=== PATIENT | female | born 1945 | race Caucasian/White ===

== ENCOUNTER 2016-08-07 08:11 | Inpatient (IN) | payer MEDICARE ==
[~2016-08-07] VITALS: Ht 152.4 cm; Wt 76.3 kg
--- NOTE | ~2016-08-07 | HP ---
PATIENT'S NAME: MADDIE DENSON [facility] AGE: 71 Y [address] ROOM: [place] [address] LOCATION: [facility], [place] ADMIT DATE: 08/07/2016 History & Physical DISCHARGE DATE: FAMILY PHYSICIAN: PHYSICIAN, UNKNOWN ATTENDING PHYSICIAN: RAPHAEL STATON DATE OF SERVICE: CHIEF COMPLAINT: Altered mental status change. HISTORY OF PRESENT ILLNESS: This is a 71-year-old female with history of diabetes as well as DKA with coma in the past. Last admission here was June last year, during which time, she presented with a same clinical scenario as what she is presenting with right now. Please check the discharge summary which was done then by Dr. Keys. Unable to obtain history from the patient as she is currently confused and the ER doctor as well was unable to obtain much history, but from what Dr. Ramon, the ER doc said, it seemed a neighbor went in to check on the patient and found the patient confused and also altered and so the unit was called and patient was brought into the ER. During evaluation in the ER, the patient was lethargic, confused, and blood sugar was 1500 and she was started on DKA protocol. During my evaluation, her mentation had improved some. On the initial arrival to the ER, she was only able to say her name, but during my evaluation, she was able to tell me her full name and where she was at, and at that point, she denied any pain. She denies chest pain. Denies nausea, vomiting, though the reliability cannot be depended on. She denied any abdominal pain. REVIEW OF SYSTEMS: The 13 elements of review of systems were asked and as documented in the HPI. PAST MEDICAL HISTORY: Unable to obtain from the patient. However per old records, indicates poorly controlled diabetes, probably hypertension. PAST SURGICAL HISTORY: Unable to obtain from the patient secondary to her altered mental status. SOCIAL HISTORY: As well unable to obtain due to patient's condition. FAMILY HISTORY: Unable to obtain secondary to patient's condition. PATIENT'S NAME: MADDIE DENSON [facility] AGE: 71 Y [address] ROOM: [place] [address] LOCATION: [facility], [place] ADMIT DATE: 08/07/2016 History & Physical DISCHARGE DATE: FAMILY PHYSICIAN: PHYSICIAN, UNKNOWN ATTENDING PHYSICIAN: RAPHAEL STATON PHYSICAL EXAMINATION: VITAL SIGNS: In the ER on the initial arrival. Temperature was 94.2, however, thereafter temperature dropped to around 93; pulse 110; respiratory rate 36; oxygen saturation 100% on 6 L of nasal cannula. GENERAL: Reveals a female who is alert, awake, oriented x1, not in any form of respiratory distress or painful distress, intermittent confusion, incoherent with her words. NEUROLOGIC: Unable to thoroughly evaluate secondary to patient's confusion and unable to follow commands adequately. HEENT: Normocephalic, atraumatic. Pupils equal and reactive to light bilaterally. Pharynx, the patient is edentulous, very dry mucosa. NECK: Supple. No area of tenderness. No lymphadenopathy. EAR: No obvious ear discharge or drainage. CARDIOVASCULAR: Normal S1, S2. Tachycardia. CHEST: Clear to auscultation bilaterally. ABDOMEN: Soft, nondistended. No area of tenderness. No lymphadenopathy. ABDOMEN: Soft, nondistended. No palpable organomegaly. Positive bowel sounds. EXTREMITIES: There is no joint swelling or erythema or tenderness. SKIN: No rash or skin breakdown. LABORATORY DATA: On admission, ABG on admission pH 6.80, pCO2 is 11, lactic acid is 6.3. Troponin on admission, first set was 0.192 and it went up to 0.373. WBC on admission was 27.9, H and H were 13.2/43.5, platelet is 345. Sodium on admission corrected was 146 with blood sugar of 1005. Repeat BMP which occurs about 2 hours after the initial sodium, corrected sodium was 149, creatinine remained at 1.8, and glucose was 868, potassium was 5.6, bicarb was less than 5. Liver function tests were within normal limits. Anion gap was recordable. UA leukocytes negative, nitrite negative, bacteria negative. CRP 1.92. Acetone was positive. Procalcitonin 0.4. CK-MB 2.4. Microbiology: Blood cultures are pending. RADIOLOGY: Chest x-ray no acute findings. CT head, normal CT of the head, no change. ASSESSMENT AND PLAN: This is a 71-year-old female who comes in with altered mental status change. 1. Acute encephalopathy probably secondary to diabetic ketoacidosis with coma which is slowly improving. We will continue to manage the patient's DKA according to the order set. We will continue to monitor the patient's mental status change. Please note #1 present on admission. 2. Diabetic ketoacidosis with coma, slowly improving. We will continue the patient on the insulin order set. 3. Hypernatremia. Probably secondary to the dehydration from insensible PATIENT'S NAME: MADDIE DENSON [facility] AGE: 71 Y [address] ROOM: [address] [address] LOCATION: [facility] [place] ADMIT DATE: 08/07/2016 History & Physical DISCHARGE DATE: FAMILY PHYSICIAN: PHYSICIAN, UNKNOWN ATTENDING PHYSICIAN: RAPHAEL STATON water loss. Right now, the patient has received 3.5 L of half normal saline bolus, and thereafter, we will continue her on D5 water at 75 mL an hour. We will continue and titrate the insulin drip accordingly. 4. Hyperkalemia secondary to acute kidney injury. It is improving. Hopefully, as the patient is still on the insulin drip that she is still going to continue to improve. 5. Acute kidney injury probably prerenal from dehydration from the diabetic ketoacidosis. We will continue to hydrate the patient aggressively, present on admission. We will also get a renal ultrasound. 6. Acute hypoxic respiratory failure. The patient right now is on 4 L of nasal cannula, probably from respiratory muscle fatigue from Kussmaul respiration. We will continue to manage the metabolic derangements and hope this will improve the respiratory failure. 7. High anion gap metabolic acidosis present on admission secondary to diabetic ketoacidosis. The patient is currently on bicarb drip. We will continue to check her ABG every 4 hours as well as her BMP and once her pH is greater than 7.0, then we will stop the bicarb drip. Continue to hydrate the patient aggressively. 8. Systemic inflammatory response syndrome present on admission. Urine culture is negative. UA is negative. Chest x-ray, there is no infiltrate. This maybe reactive secondary to the diabetic ketoacidosis and severe dehydration; however, we will empirically start the patient on Zosyn and follow up on the results of the urine culture. 9. Elevated troponin probably secondary to the acute kidney injury versus demand ischemia. We will start the patient empirically on heparin drip. The EKG is not normal sinus rhythm without any ST-T segment changes. Cardiology has been consulted by Dr. Ramon. They tried doing the echocardiogram in the ER, but the patient was restless and not cooperative, so echo has been postponed until tomorrow. Critical care time spent on this patient is approximately 65 minutes. MD PRANAY CORNELIUS/josiah /[id number] D: 311 T: HISTORY & PHYSICAL
--- NOTE | ~2016-08-07 | HP ---
PATIENT'S NAME: MADDIE DENSON [facility] AGE: 71 Y [address] ROOM: [place] [address] LOCATION: [facility] ADMIT DATE: 08/07/2016 History & Physical DISCHARGE DATE: FAMILY PHYSICIAN: PHYSICIAN, UNKNOWN ATTENDING PHYSICIAN: RAPHAEL STATON DATE OF SERVICE: ADDENDUM: Please note under physical examination, SKIN: The skin of the bilateral lower extremities was mottled and also the patient had a cold skin. MD PRANAY CORNELIUS/josiah /[id number] D: T: 650 HISTORY & PHYSICAL
--- NOTE | ~2016-08-07 | CATH ---
Cardiac Diagnostic Report Demographics Patient Name JANIYA Vizcarra Gender Female Date of 1945 Age 71 year(s) Patient Number [id number] Date of Study 08/11/2016 Visit Number [id number] Room Number G6[address] [place] [id number] Ht 152.4 cm Wt 73.48 kg Referring Leslieelvia Nhi Vizcarra Primary Physician Physician Performing Liliana Secondary Physician Physician Hattie ARENAS Diagnostic Liliana Assisting Physician Physician Hattie ARENAS Interventional Physician Sheet Tester Physician Findings and Conclusions Diagnostic Findings and Conclusion 1. Normal LVEDP of 11 mm Hg. 2. Mild CAD with ostial LAD 40% smooth lesion. Diagnostic Recommendations Medical treatment for now. Procedure Description The patient was brought to the diagnostic cardiac catheterization-EP laboratory in the fasting, non-sedated state. Informed consent was obtained in the written and verbal form after the risks and benefits were explained. The patient had no further questions and agreed to proceed. The planned puncture-incision site(s) were shaved and prepped with ChloraPrep and draped in the usual sterile manner. Conscious sedation, supplemental oxygen, and pain control medications were delivered by a registered nurse under physician guidance. Surface ECG rhythm, blood pressure measurement, and pulse oximetry were monitored throughout the procedure. Arterial access. The access site was infiltrated with lidocaine. The vessel was entered with the Seldinger technique. A sheath was advanced into the vessel and used for catheter placement. Selective left coronary angiography. A catheter was advanced into the left coronary vessel ostium under Fluoroscopic guidance. Contrast was injected by hand. Images were obtained in multiple projections. Selective right coronary angiography. A catheter was advanced into the right coronary vessel ostium under fluoroscopic guidance. Contrast was injected by hand. Images were obtained in multiple projections. Left heart catheterization. A catheter was advanced across the aortic valve to the left ventricle under fluoroscopic guidance. Resting hemodynamics were obtained. Arterial artery hemostasis was achieved. The patient was transferred to a regular nursing floor via cart accompanied by a nurse. The patient left the laboratory in stable condition. Diagnostic Cath Status: Urgent Procedure Procedure Type Diagnostic procedure:Angiography:, Coronary Angios w/[facility] Indications: Abnormal Stress Test and Elevated Troponin. The procedure was explained in detail to the patient. Risks, complications and alternative treatments were reviewed. Written consent was obtained. Medications Reviewed with Patient prior to Procedure. Angiographic Findings Dominance: Left Cardiac Arteries and Lesion Findings LMCA: Minor Luminal Irregularities. LAD: type II. Small diagonals. Lesion on Prox LAD: Ostial.40% stenosis . LCx: Minor Luminal Irregularities.5 OMs. OM1 and OM3 are medium sized. RCA: Normal (0% Stenosis). Ramus: Minor Luminal Irregularities. Coronary Tree Procedure Data Procedure Date Date: 08/11/2016Start: 10:36 AMEnd: 11:01 AM Entry Locations - Retrograde Percutaneous access was performed through the Right Femoral artery (Primary location). A 7 Fr sheath was inserted. Hemostasis was successfully obtained using Perclose ProGlide (Guzman). Closure Comments: Deployed by RT. Rodrigo. Procedure Medications Order and Administration + + +--------+ + !Time !Medication !Dosage !Route ! + + +--------+ + !08/11/2016 10:31 AM !Versed !1 mg !I.V. ! + + +--------+ + 08/11/2016 10:34 AM !Oxygen !2 l/min !NC ! + + +--------+ + !08/11/2016 10:35 AM !Fentanyl !50 mcg !I.V. ! + + +--------+ + !08/11/2016 10:52 AM !Heparin (ACC_3) ! !I.V. drip ! + + +--------+ + Devices Used - A6 Fr. BS JR 4 Diag. Catheterwas used for:Right coronary angiography. - A6 Fr. BS JL 4 Diag. Catheterwas used for:Left coronary angiography.Unable to cannulate the vessel. - A6 Fr. BS JL 3.5 Diag. Catheterwas used for:Left coronary angiography. Contrast Material - Isovue 77396 ml Fluoroscopy Time: Diagnostic: 4:24 minutes. Total: 4:24 minutes. Fluoroscopy Dose: Diagnostic: 1063 mGy. Total: 1063 mGy. Estimated Blood Loss: 20 ml. Medical History Performed Procedures and Imaging Results - Stress testing with SPECT MPIwas performed. Results were: Positive. Risk/Extent of ischemia was: Intermediate risk. Allergies - No known allergies. Risk Factors The patient risk factors include:hypercholesterolemia, hypertension, insulin-treated diabetes mellitus, last creatinine: 0.8 mg/dl, creatinine clearance: 76.99 ml/min and dyslipidemia. Admission Data Admission Date: 08/07/2016 Admission Time: 10:44 AM Admit Source: Other Insurance Payors: Medicare. Admission Medications + +------+------+ + + + + !Medication !Dosage!Times !Last !Last !Administered !Comments ! ! ! !Per !Delivery !Delivery ! ! ! ! ! !Day !Date !Time ! ! ! + +------+------+ + + + + !Beta ! ! ! ! !Yes ! ! !Jason ! ! ! ! ! ! ! !(any) ! ! ! ! ! ! ! + +------+------+ + + + + !Aspirin ! ! ! ! !Yes ! ! !(any) ! ! ! ! ! ! ! + +------+------+ + + + + !Statin ! ! ! ! !Yes ! ! !(any) ! ! ! ! ! ! ! + +------+------+ + + + + Clinical Evaluation Leading to Procedure - The patient's CAD presentation was assessed as: Non-STEMI. - The patient's anginal syndrome during the past two weeks was assessed as: Class IV according to the [place] Cardiovascular Society Classification System (CCS). Anti-anginal medications were prescribed during the past two weeks. The medication is: Beta Blockers. Hemodynamics Condition: Rest O2 Consumption: Estimated: 143.51Heart Rate: 48 bpm Pressures (mmHg) +-----+ + !Site !Pressure ! +-----+ + !LV !131/2 ,11 ! +-----+ + !LV !128/1 ,10 ! +-----+ + !AO !122/59 (87) ! +-----+ + Shunts Oxygen Values O2 Capacity 159.12 O2 Consumption 143.51 Signatures dtt: Hattie Ford dtd: 08/11/16 1036 Physician Self Edit
--- NOTE | ~2016-08-07 | DS ---
PATIENT'S NAME: MADDIE DENSON [facility] AGE: 71 Y [address] ROOM: [address] [address] LOCATION: [facility] ADMIT DATE: 08/07/2016 Discharge Summary DISCHARGE DATE: 08/12/2016 FAMILY PHYSICIAN: Darius Benjamin MD ATTENDING PHYSICIAN: Nhi Waldrop PRIMARY DIAGNOSES: 1. Diabetic ketoacidosis with coma. 2. Acute encephalopathy. 3. Acute temporal cerebrovascular accident. 4. Acute kidney injury. 5. Acute hypoxic respiratory failure. 6. Utz-VM-xqctxkx elevation myocardial infarction. 7. Sepsis. 8. Acute hyponatremia. PRINCIPAL PROCEDURE: Done for the patient includes a cardiac cath by Dr. Ford. LABORATORY DATA: On admission, troponin 1st set on admission was 0.192, highest level of troponin obtained was 4.5. WBC on admission was 27.9, prior to discharge was 5.4; H and H on admission was 13.2/43.5, prior to discharge was 11.6/34.4; platelet on admission was 345, prior to discharge was 164. Sodium on admission is 132, corrected, sodium prior to discharge was 141; potassium on admission was 6.2, prior to discharge was 3.7; bicarb on admission was less than 5 and prior to discharge was 25; creatinine on admission was 1.8, prior to discharge was 0.7. ABG on admission was pH less than 6.80, pCO2 11, and PO2 152. Magnesium on admission was 1.5, was repleted, prior to discharge was 1.6. Stool for C. difficile was negative. Blood culture, no growth after 5 days. Urine culture, 1000 [place] [address] colony-forming unit Klebsiella pneumoniae. Blood culture, no growth after 5 days x2 sets. RADIOLOGY: Chest x-ray, no acute findings. Ultrasound of the kidneys: Moderate chronic cortical thinning on both sides consistent with chronic renal disease. No hydronephrosis on either side to suggest obstructive uropathy. CT of the head: Normal CT of the head, no change. CT of the abdomen and pelvis is reported as small bilateral pleural effusion with very small pericardial effusion and cardiomegaly, no acute finding in the abdomen. Repeat CT of the head, stable. No acute intracranial changes. MRI of the brain: Small acute ischemic infarct in the left temporal lobe. A stress test positive in the inferolateral, and cardiac cath, normal LVEDP of 11 mm, mild CAD with ostial LAD 40% smooth lesion. Medical treatment for now. PATIENT'S NAME: MADDIE DENSON [facility] AGE: 71 Y [address] ROOM: [place] [address] LOCATION: [facility] ADMIT DATE: 08/07/2016 Discharge Summary DISCHARGE DATE: 08/12/2016 FAMILY PHYSICIAN: Darius Benjamin MD ATTENDING PHYSICIAN: Nhi Waldrop [facility] COURSE: For history of present illness, please take a look at the H and P which was done by Dr. Waldrop. The patient was admitted to ICU where she was at for about 4 days. She came in and was managed for DKA with coma as well as a yqi-PE-zpnvsxa elevation NE, so had a Cardiology consult from the first day of the hospital stay. Given her acute encephalopathy as well, she had a CT of the head, which was essentially was done, negative. She was managed as per the DKA order pathway. She did have very severe high anion gap metabolic acidosis, which did not start to correct appropriately until the next day of the hospital stay. Slowly her kidney function began to improve and her acid base abnormality as well started to improve as well as her blood sugar control. However, the acute encephalopathy still persisted with confusion, some restlessness, and disorientation. Because of the persistence despite the fact that the blood sugar was better controlled, we had a repeat CT head done, which essentially was unchanged; however, we decided to go ahead and do an MRI of the brain, given the fact that her encephalopathy still continued despite the fact that her acute medical issues which she presented with had significantly improved. So, the MRI of the head did show a small left temporal acute CVA. Also by after the 4th day of the hospital stay, she was successfully transferred out of the ICU to PCU; and upon getting to PCU, there was a significant change in her mental status characterized by the patient being alert, awake at this time around now, oriented x3. The time interval for this change was pretty remarkable. However, from the first day of the hospital stay given her uph-AC-aeojjaw elevation NE, she was on heparin as well as aspirin and was empirically on antibiotics secondary to her elevated white cell count. However, her urine culture was positive for the Kle[place] [address] colony-forming units which was not significant for a UTI; however, she was continued on Zosyn for about 4 or 5 days, after which it was switched to oral Levaquin. Upon getting to PCU, the patient did have a stress test done, which was positive in the inferolateral section; however, her EF was normal, so she did go ahead to get a cardiac cath done and the cardiac catheterization essentially showed not a significant coronary artery disease. Cardiology recommended medical management. A day after the catheterization, the patient is still remained clinically stable. Her mentation had returned to a baseline. She was alert, awake, and oriented x3. She was ambulating on the hallway and the patient was discharged home with home health. We did discuss with the patient that it is no longer safe for her to live on her own; however, she insisted that she needed to continue to live on her own and so we recommended for her to be discharged home with Home Health. Initially, she refused home health; however, the importance of this was explained to her as next time around she comes in with a severe DKA, it may be her last chance. DISCHARGE INSTRUCTIONS: To the patient include she needs to follow with her family doctor, Dr. Benjamin, in the next 1 week and also follow up with Dr. Ford in 2 weeks. PATIENT'S NAME: MADDIE DENSON [facility] AGE: 71 Y [address] ROOM: [place] [address] LOCATION: [facility] ADMIT DATE: 08/07/2016 Discharge Summary DISCHARGE DATE: 08/12/2016 FAMILY PHYSICIAN: Darius Benjamin MD ATTENDING PHYSICIAN: Nhi Waldrop MEDICATIONS ON DISCHARGE: 1. Aspirin 81 mg p.o. daily. 2. Lipitor 40 mg p.o. q.h.s. 3. Levemir 10 units subcu q.a.m. 4. Levemir 5 units subcu q.h.s. 5. Levaquin 750 mg p.o. daily 1 more day. 6. Synthroid 88 mcg p.o. daily. 7. Bystolic 5 mg p.o. daily. 8. Effexor 150 mg p.o. daily. 9. Metformin 1 g p.o. twice daily. 10. Dexilant 1 capsule p.o. daily. 11. Lasix 1 tab 40 mg p.o. every 48 hours. 12. Contour Next Strips and OneTouch UltraMini. MD PRANAY CORNELIUS/josiah /[id number] d: 08/13/16 0058 t: 08/14/16 1653, DISCHARGE SUMMARY
--- NOTE | ~2016-08-07 | ESTC ---
Cardiac Perfusion Imaging Demographics Patient Name JANIYA Vizcarra Gender Female Patient Number [id number] Race Visit Number [id number] Ethnicity [employer] ID Room Number G6302 Accession Number [id number] Height 60 inches Date of 1945 Weight 162 pounds Interpreting Liliana Kuhn Date of study 08/10/2016 Physician Supervising /ANCELMOP Liliana Kuhn NM Technologist Niki Lovelace MD Ordering Physician Liliana Kuhn Stress MD environmental engineering technician Stress ECG Reading Liliana Kuhn Nurse Alexus Goel Physician RN Medications Reviewed with Patient prior to Procedure. Procedure Procedure Type: Nuclear Stress Test:Pharmacological, Lexiscan, Cardiolite Stress Test Procedure Start time: 08/10/2016 09:10 Indications: Elevated cardiac enzymes. Risk Factors The patient risk factors include:hypercholesterolemia, hypertension, insulin treated diabetes mellitus, last creatinine: 0.8 mg/dl and dyslipidemia. Conclusions Summary No TID. Medium inferolateral ischemia of mild to moderate degree. LVEF:75%. Normal WM. Stress Protocols Resting ECG RSR. Pre-stress physical exam: Un changed. Peak HR:109 bpm HR/BP product:[id number] Peak BP:122/60 mmHg Predicted HR: 151 bpm % of predicted HR: 72 ECG Findings No ECG changes suggestive of ischemia. Arrhythmias No rhythm abnormality. Symptoms SOB. Nausea. Stress Interpretation Lexiscan cardiolite study with normal hemodynamic response. No chest pain. SOB and nausea. No EKG changes of ischemia. No arrythmias. Imaging Results Applied corrections - Motion correction applied High risk findings Summed scores - Summed stress score: 12 - Summed rest score: 7 - Summed difference score: 5 Stress ejection Ejection fraction:75 % EDV :88 ml ESV :22 ml Stroke volume :66 ml LV mass :124 gr LV size:Normal Normal LV function Imaging Protocols Rest Stress Isotope:Tc99m Sestamibi IV Isotope: Tc99m Sestamibi IV Isotope dose:11.4 mCi Isotope dose:35 mCi Date:08/10/2016 07:43 Date:08/10/2016 10:18 Technique: SPECT Technique: Gated Supine SPECT Supine Procedure Medications - Regadenoson (Lexiscan) 0.4 mg IV over 10-15 sec. I.V. 0.4 mg. Medical History Admission Data Admission date: 08/07/2016 Admission Time: 10:44 Hospital Status: Inpatient. Signatures dtt: Hattie Ford dtd: 08/10/16 0910 Physician Self Edit
--- NOTE | ~2016-08-07 | ER ---
PATIENT'S NAME: MADDIE DENSON [facility] AGE: 71 Y [address] ROOM: [place] [address] LOCATION: [facility] ADMIT DATE: 08/07/2016 ER/Outpatient Report DISCHARGE DATE: FAMILY PHYSICIAN: PHYSICIAN, UNKNOWN ATTENDING PHYSICIAN: RAPHAEL STATON CHIEF COMPLAINT: Altered mental status. HISTORY OF PRESENT ILLNESS: The patient arrives by EMS. Someone found her for unknown reasons. She appeared to be more altered and thus EMS was contacted. The patient is slurring her words and not interacting appropriately. She has a known history of diabetes. No significant collateral information is available. The patient denies any pain, but it is very difficult to understand her. She is breathing somewhat deeply. Collateral information suggests that she was also not acting quite right last night. PAST MEDICAL HISTORY: According to records includes hypothyroidism, high cholesterol, AFib, and renal disease. The patient has insulin-dependent diabetes and hypertension. PAST SURGICAL HISTORY: She has a history of cholecystectomy and hysterectomy. ALLERGIES: NO KNOWN MEDICAL ALLERGIES. MEDICATIONS: Please see med list. SOCIAL HISTORY: Could not be ascertained based on review of records and the patient interview. PHYSICAL EXAMINATION: VITAL SIGNS: Blood pressure is 128/88, pulse is 110, respiratory rate is 36, temp is 94.2, and SpO2 is 100% on 6 L nasal cannula. GENERAL: Frail female appearing older than her stated age, recumbent on the exam table, breathing heavily and confused. NEURO: The patient is awake, she is confused, she had some slurred speech. She is able to say her name and denies any pain. She does not follow commands in extremities. She does have a flexed posture of the hands. The patient has no seizure-like activity and no asymmetry on exam. HEENT: Normocephalic, atraumatic. The eyes are PERRL. The oropharynx is PATIENT'S NAME: MADDIE DENSON [facility] AGE: 71 Y [address] ROOM: [place] [address] LOCATION: [facility] ADMIT DATE: 08/07/2016 ER/Outpatient Report DISCHARGE DATE: FAMILY PHYSICIAN: PHYSICIAN, UNKNOWN ATTENDING PHYSICIAN: RAPHAEL STATON dry. No exudates or erythema. NECK: Supple. Trachea is midline. CHEST: Heart is tachycardic with no obvious murmurs. LUNGS: Grossly clear with tachypnea and hyperpnea. ABDOMEN: Benign. BACK: Normal to inspection and palpation. EXTREMITIES: Warm and well-perfused. No obvious significant edema or erythema. SKIN: Warm, dry, and intact with slowed capillary refill and cool hands. LABS AND X-RAYS: Chest x-ray, no obvious findings per my read. CT head reveals no significant findings other than atrophy per Radiology. Echo was ordered and results are pending. EKG appears to be sinus tachycardia with occasional PACs and some baseline artifact. No obvious ischemia. Repeat EKG does not have any ST- segment changes with an improved rate. Overall, baseline improved. Labs notable for the following: WBCs of 27.9, hemoglobin of 13.2, and platelets of 345. INR 0.94. CMS: Sodium is 132, potassium 6.2, chloride is 97, CO2 is below detectable threshold, glucose is 1005, BUN is 42, creatinine is 1.8, GFR is 28. LFTs are notable for an alk phos of 192, AST and ALT are both 18, CK- MB is 2.4. Troponin I initially 0.192, CRP of 1.92, free T4 of 1.0, TSH 0.913, procalcitonin 0.4, and serum ketones are positive at 1:16. Urinalysis no leukocytes, no nitrites, 25 blood, 1000 glucose, rare wbcs, rbcs, and epithelials. Blood gas; pH is below detectable threshold, pCO2 was 11, pO2 is 152 on 4 L. Lactate is 6.3. Repeat labs sodium of 137, potassium of 5.6, chloride of 102, CO2 below 5, glucose 868, creatinine remains at 1.8, and troponin up to 3.73. IMPRESSION: 1. Severe diabetic ketoacidosis. 2. Up trending troponin, likely demand ischema as the patient has no chest pain. 3. Concomitant lactic acidemia. 4. Azotemia. 5. Encephalopathy. EMERGENCY DEPARTMENT COURSE: The patient was seen and evaluated as above. Based on her presentation, severe metabolic derangement including significant thyroid disorder was considered. Her glucose per EMS was "high." This brought DKA to the forefront. DKA explains most of her presentation, but not the elevation of her troponin. Normal saline bolus was initiated. Laboratory was obtained, glucose corrects sodium to 146. She was started on half-normal saline and given the insulin bolus and drip. She had favorable response overall with up trending sodium. Troponin continued to up trend as well. Dr. Ford was PATIENT'S NAME: MADDIE DENSON [facility] AGE: 71 Y [address] ROOM: [place] [address] LOCATION: [facility] ADMIT DATE: 08/07/2016 ER/Outpatient Report DISCHARGE DATE: FAMILY PHYSICIAN: PHYSICIAN, UNKNOWN ATTENDING PHYSICIAN: RAPHAEL STATON consulted. The patient will require heparin however the patient was taken to the ICU before the heparin could be initiated. The patient's encephalopathy did improve somewhat while she was in the emergency department. The anion gap could not be calculated and I am sure that it is very high. She has improved in her mental status and encephalopathy somewhat. Interventions included normal saline bolus, bicarb bolus and drip, half-normal saline bolus, insulin bolus and drip, as well as initiation of heparin for her up trending troponin. The patient will be admitted to the Hospitalist Service for further evaluation and treatment of these issues. CRITICAL CARE NOTE: Fifty minutes of critical care was spent on this patient and is warranted for DKA, acute encephalopathy, and hemodynamic instability. Critical care time consisted of the patient assessment, ordering in laboratory and imaging, interpretation of chest x-ray and EKG. Direction of volume resuscitation and insulin management. Consult with Dr. Ford, rubber grinder, and Dr. Staton hospitalist. The patient reassessment, reevaluating her labs, and further volume management. The patient was taken to the Intensive Care Unit. She was given Zosyn empirically as she was cold, tachycardic, and had an elevated white count though there is no clear source of infection at this time. Procalcitonin is less indicative of sepsis as a cause for her current presentation. MD HARIS COSTELLO/josiah /[id number] d: 08/08/16 0011 t: 08/09/16 2235, OUTPATIENT REPORT
--- NOTE | ~2016-08-07 | CON ---
PATIENT'S NAME: MADDIE DENSON [facility] AGE: 71 Y [address] ROOM: [place] [address] LOCATION: [facility] ADMIT DATE: 08/07/2016 Consultation DISCHARGE DATE: FAMILY PHYSICIAN: PHYSICIAN, UNKNOWN ATTENDING PHYSICIAN: RAPHAEL STATON DATE OF CONSULTATION: 08/07/2016 HISTORY OF PRESENT ILLNESS: Mrs. Denson is a 71-year-old female patient who was hospitalized last June with DKA and presents again with DKA with altered mental status. She was found to have mildly elevated troponins and has variably increased CPK-MB, and I am consulted because of that. The patient is somnolent, lethargic, and is not responding to questions well at this time, so no history is from the patient. The patient has history of hypertension, diabetes, and elevated cholesterol. It is unclear whether she is a smoker or not. Her echocardiogram from last year revealed probable normal ejection fraction because of technically poor nature. Her chest x-ray does not reveal any congestive heart failure, and she is not in atrial fibrillation, but in regular rhythm. Her EKG does not reflect any abnormalities at this time. MEDICATIONS: Her current list of medications includes: 1. Metformin 1 g b.i.d. 2. Bystolic 5 mg a day. 3. Dexilant one capsule once a day. 4. Furosemide 40 mg a day. 5. Levothyroxine 88 mcg a day. 6. Simvastatin 40 mg a day at bedtime. 7. Effexor 150 mg 2 capsules a day. 8. Insulin. 9. Aspirin 81 mg a day. 10. Levemir 4 units subcu q.a.m. ALLERGIES: NO KNOWN DRUG ALLERGIES. PAST MEDICAL HISTORY: 1. History of gout. 2. Graves disease. 3. Cholecystectomy. PATIENT'S NAME: MADDIE DENSON [facility] AGE: 71 Y [address] ROOM: [place] [address] LOCATION: [facility] ADMIT DATE: 08/07/2016 Consultation DISCHARGE DATE: FAMILY PHYSICIAN: PHYSICIAN, UNKNOWN ATTENDING PHYSICIAN: RAPHAEL STATON 4. Hysterectomy. SOCIAL HISTORY: The patient lives at home. Her neighbor checked on her and found her to be in a confused state today. FAMILY HISTORY: Unknown. REVIEW OF SYSTEMS: Could not be done. PHYSICAL EXAMINATION: VITAL SIGNS: Her blood pressure with the Levophed is about 97/60, heart rate is in the 70s and regular, respirations are 18, afebrile. HEENT: Pallor. NECK: Supple. CARDIAC: First and second heart sounds are regular. There are no added sounds or murmurs. CHEST: Clear to auscultation. ABDOMEN: Obese and soft. EXTREMITIES: No edema. CENTRAL NERVOUS SYSTEM: Difficult to assess. ASSESSMENT: A 71-year-old female patient with history of type 2 diabetes, hypertension, and hyperlipidemia who presents with diabetic ketoacidosis, and her troponins are elevated. RECOMMENDATIONS: We will follow her troponins through and get an echo in the morning, and we will review what options are available in terms of doing a stress test. Again, I appreciate this opportunity to participate in the care of Mrs. Denson. MD AMA ESTRADA/josiah /[id number] d: 08/07/16 1815 t: 08/09/16 1453, CONSULTATION REPORT
--- NOTE | ~2016-08-07 | CON ---
PATIENT'S NAME: MADDIE DENSON [facility] AGE: 71 Y [address] ROOM: [place] [id number] LOCATION: [facility] ADMIT DATE: 08/07/2016 Consultation DISCHARGE DATE: FAMILY PHYSICIAN: PHYSICIAN, UNKNOWN ATTENDING PHYSICIAN: RAPHAEL STATON DATE OF CONSULTATION: 08/08/2016 REFERRING PHYSICIAN: MORTEZA AGRAWAL MD TIME: 05:40 p.m. CHIEF COMPLAINT: Altered mental status. HISTORY OF PRESENT ILLNESS: This is a 71-year-old female with a history of diabetes and DKA with coma. Last admission she presented in June. This admission, she presented in diabetic ketoacidosis with a pH of 6.80, her CO2 of 11, and bicarbonate of 152. Her lactate was 6.3. Her white count at that time was 27.9, and her glucose was over 1000. Since then, she has been brought down to a controlled glucose. We are being consulted because the patient is not clearing as she did with her last admission. She remains confused and lethargic and she is arousable, but does not offer any conversation. Her history had to be gleaned from the charts because the patient is unable to offer any history. When I ask her how she is doing and tried to review the systems, I do not feel she is a competent historian, however, she tells me she is not doing very good today. REVIEW OF SYSTEMS: The 13 elements of review of systems were unable to be obtained due to the patient's status. PAST MEDICAL HISTORY: Includes 1. Hypothyroidism. 2. Hyperlipidemia. 3. Atrial fibrillation. 4. Renal disease. 5. Insulin-dependent diabetes. 6. Hypertension. PAST SURGICAL HISTORY: Includes 1. Cholecystectomy. 2. Hysterectomy. PATIENT'S NAME: DENSONMADDIE HENSLEY [facility] AGE: 71 Y [address] ROOM: [place] [address] LOCATION: [facility] ADMIT DATE: 08/07/2016 Consultation DISCHARGE DATE: FAMILY PHYSICIAN: PHYSICIAN, UNKNOWN ATTENDING PHYSICIAN: RAPHAEL STATON ALLERGIES: INCLUDE NO KNOWN MEDICAL ALLERGIES. HOME MEDICATIONS: Include 1. Metformin 1000 mg p.o. b.i.d. 2. Bystolic 5 mg p.o. daily. 3. Dexilant one capsule p.o. daily. 4. Furosemide 40 mg one tablet p.o. q.48 hours. 5. Levothroid 88 mcg p.o. daily. 6. Simvastatin 40 mg p.o. at bedtime. 7. Effexor XR two capsules daily. 8. Levemir insulin 14 units at bedtime. 9. Aspirin 81 mg p.o. daily. 10. Levemir insulin 4 units subq q.a.m. PHYSICAL EXAMINATION: VITAL SIGNS: Revealed a weight of 74.9 kg, her temperature is 98.6, pulse is 98, respiratory rate is 23, oxygen saturations are 96% on room air, and her blood pressure is 110/62. GENERAL: This is a frail, elderly-appearing female, being helped back into bed with weakness. HEENT: Her head is normocephalic and atraumatic. Pupils are equal and reactive to light and accommodation. Her mouth is dry. NECK: Supple. Trachea is midline. No bruits were auscultated. CHEST: S1 and S2 with no murmurs, rubs, or gallops. LUNGS: Grossly clear with no adventitious sounds. ABDOMEN: Soft with hypoactive bowel sounds. SKIN: Warm and dry with capillary refill less than 3 seconds. NEUROLOGICAL: Her pupils are equal and reactive to light and accommodation. She is weak, maybe a 3/5 in upper and lower extremities bilaterally. There was no focal deficit noted, just generalized weakness. She is drowsy, but definitely arousable. She knows her name and where she is, but is disoriented to other findings. Deep tendon reflexes are 3+ in upper and lower extremities. Finger-nose and heel-crowell were performed adequately. Sensation was difficult to test due to the patient's ability to participate in the exam. She does move all extremities spontaneously and equally. Extraocular movements are slow. She does blink to bilateral threat. Visual chavarria are difficult to ascertain other than the blink because of her ability to participate in the exam. DIAGNOSTICS: The patient did have a CT of her head today, which showed stable images with no evidence of acute intracranial abnormality. She is on a heparin drip, and PATIENT'S NAME: MADDIE DENSON [facility] AGE: 71 Y [address] ROOM: [place] [id number] LOCATION: [facility] ADMIT DATE: 08/07/2016 Consultation DISCHARGE DATE: FAMILY PHYSICIAN: PHYSICIAN, UNKNOWN ATTENDING PHYSICIAN: RAPHAEL STATON her heparin PTT was 90. She has had an echocardiogram that revealed an EF of 60 to 65, with a moderately dilated left atrium. The right atrium is normal atrial size. Her blood sugars, she did have a critical high of 299 this morning. So, we are definitely not back to control yet. She did have a CBC this morning with WBCs of 12.9, with neutrophils percentage being 74.9, and lymphocytes were 16.2. Her basic panel revealed a sodium of 142, chloride of 113, CO2 of 19, calcium of 8, and phosphorus of 1.6. IMPRESSION AND PLAN: Acute encephalopathy secondary to diabetic ketoacidosis. CT is negative, thankfully, for any acute processes. Nurses state that her mental status today is better than it was previously. We will continue to monitor the patient's mental status. We will also be on the alert for any hospital- acquired conditions that may contribute to her encephalopathy. Thank you for the opportunity for this consult. If you have any questions, please notify myself or Dr. Agrawal. The findings of this consult were relayed to Dr. Staton. Dr. Staton did want to continue with an MRI. MARC KESSLER APRN FOR MORTEZA AGRAWAL MD PP/modl /[id number] d: 08/09/162011 t: 08/18/16 1318, CONSULTATION REPORT
--- NOTE | ~2016-08-07 | ECHO ---
Transthoracic Echocardiography Report (TTE) Demographics Patient Name MADDIE DENSON Date of Study 08/08/2016 Patient Number [id number] Visit Number [id number] Date of 1945 Room Number G6203 Gender Female Number Age 71 year(s) Referring [employer]/Photovoltaic Installer Tish Gardner RVT, Physician RDCS Physician Interpreting Liliana Kuhn Oil Recovery Unit Operator Physician Supervising Ordering Liliana Kuhn MD/MLP Physician Nurse Stress Power Project Manager Conclusions Contractility Score Summary Normal Left Ventricular contractility was noted. Summary Technically difficult exam due to uncooperative patient. Definity used to be delineate endocardial borders. The estimated left ventricular ejection fraction is 60-65% with WMAs.The left ventricle is normal in size.LV wall thickness is normal. The left atrium is moderately dilated. Mild mitral regurgitation by color Doppler. Procedure Type of Study TTE procedure:2D Echocardiogram, Echo with Contrast. Procedure Date Date: 08/08/2016 Start: 10:35 AM Study Location: Inpatient Portable Technical Quality: Fair due to poor acoustical window. Indications:Atrial fibrillation. Patient Status: Routine Contrast Medium: Definity. Amount - 3 ml HR: 87 bpm BP: 107/59 mmHg M-Mode/2D Measurements LV Diastolic Dimension: 4.22 cm LV Systolic Dimension: 2.52 cm LV Septum Diastolic: 0.82 cm LV PW Diastolic: 0.7 cm AO Root Dimension: 2.13 cm Cardiac Output: 3.99 l/min LA Dimension: 3.64 cm LVOT: 1.9 cm LVOT VTI: 16.2 cm RV Base: 2.6 cm LV Stroke volume: 45.91 ml RV Length: 6.29 cm TAPSE: 2.6 cm TDI-S': 13.2 cm/s Doppler Measurements AV Peak Velocity: 1.13 m/s MV Peak E-Wave: 0.79 m/s AV Peak Gradient: 5.11 mmHg MV Peak A-Wave: 0.93 m/s AV Mean Gradient: 3 mmHg MV E/A Ratio: 0.85 LVOT Peak Velocity: 0.96 m/s MV P1/2t: 82 msec E' Septal Velocity: 0.07 m/s A' Septal Velocity: 0.09 m/s E' Lateral Velocity: 0.05 m/s A' Lateral Velocity: 0.1 m/s Findings Left Ventricle The left ventricle is normal in size.LV wall thickness is normal.LVEF:55%.No WMAs. Right Ventricle Normal right ventricle structure and function. Left Atrium The left atrium is moderately dilated. There is no evidence of patent foramen ovale or atrial septal defect by color Doppler. Right Atrium Normal right atrial size. IVC measures 1.44 cm with inspiratory collapse. Mitral Valve Mild mitral regurgitation by color Doppler. Aortic Valve Normal aortic valve structure and function. Tricuspid Valve Normal tricuspid valve structure and function. Pulmonic Valve Normal pulmonic valve structure and function. Pericardial Effusion No evidence of pericardial effusion. Miscellaneous Visualized portions of the aortic root and ascending aorta appear normal in size. Pleural Effusion No evidence of pleural effusion. Contractility Score LV regional wall motion:(0-Non visualized 1-Normal 2-Hypokinesis 3-Akinesis 4-Dyskinesis 5-Aneurysm) Signature dtt: Hattie Ford dtd: 08/08/16 1035 Physician Self Edit
[~2016-08-07 08:11] MED LIST changes: -AMARYL2 MG PO; -HUMULIN 70100 UNIT/1 SUB-Q; -HUMULIN 70100 UNIT/M SUB-Q; -LEVAQUIN 750 M750 MG PO; -LIPITOR40 MG PO; -NOVOLOG100 UNIT/M SUB-Q
[2016-08-07 08:41] LABS: LACTATE 6.3 mEq/L (0.50-1.60); PO2 152 mmHg (80-90)
[2016-08-07 08:44] LABS: HEMATOCRIT 43.5 % (33.0-46.0); HEMOGLOBIN 13.2 g/dL (10.0-15.0); MCH 30.9 pg (27.0-34.0); MCHC 30.3 gm/dL (32.0-36.5); MCV 101.9 fl (83.0-98.0); PLATELET COUNT 345 K/uL (150-450); RBC 4.27 M/uL (3.50-5.50)
[2016-08-07 08:44] LABS: BILIRUBIN URINE NEGATIVE (NEGATIVE); BLOOD URINE 25 /UL (NEGATIVE); COLOR URINE STRAW (YELLOW); GLUCOSE URINE 1000 mg/dL (NEGATIVE); KETONE URINE 150 mg/dL (NEGATIVE); LEUKOCYTES URINE NEGATIVE /UL (NEGATIVE); NITRITE URINE NEGATIVE (NEGATIVE); PROTEIN URINE 30 mg/dL (NEGATIVE); TURBIDITY URINE CLEAR (CLEAR); UROBILINOGEN URINE NORMAL (NORMAL)
[2016-08-07 08:47] LABS: PCO2 11 mmHg (35-45)
[2016-08-07 08:48] LABS: WBC 27.9 K/uL (4.0-11.0)
[2016-08-07 08:49] LABS: INR - (THERAPEUTIC) 0.94 (0.92-1.07); PROTIME 9.9 SECONDS (9.8-11.4); PTT 37 SECONDS (25-32)
[2016-08-07 08:51] LABS: BACTERIA URINE NEGATIVE (NEGATIVE); EPITHELIAL URINE RARE #/HPF (NEGATIVE); RBC URINE RARE #/HPF (NEGATIVE); WBC URINE RARE #/HPF (NEGATIVE)
[2016-08-07 09:03] LABS: ALBUMIN 3.5 gm/dL (3.5-5.0); ALK PHOS 192 IU/L (33-138); ALT 18 IU/L (12-78); AST 18 IU/L (10-40); BLOOD UREA NITROGEN 42 mg/dL (6-24); CALCIUM 8.8 mg/dL (8.5-10.5); CHLORIDE 97 mMol/L (96-110); CREATININE 1.8 mg/dL (0.5-1.1); ESTIMATED GFR (MDRD EQUATION) 28; SODIUM 132 mMol/L (135-145); TOTAL BILIRUBIN 0.4 mg/dL (0.0-1.5); TOTAL PROTEIN 6.8 g/dL (6.0-8.4)
[2016-08-07 09:06] LABS: CO2 < 5 mMol/L (22-32); POTASSIUM 6.2 mMol/L (3.7-5.1)
[2016-08-07 09:12] LABS: ABSOLUTE NEUTROPHIL CT (ANC) 22.9 K/uL (1.8-7.8); BANDED NEUTROPHIL # 2.8 K/uL (0.0-0.1); BANDED NEUTROPHILS % 10 %; LYMPHOCYTE # 2.8 K/uL (0.8-4.0); LYMPHOCYTE % 10 %; MONOCYTE # 2.2 K/uL (0.0-1.0); SEGMENTED NEUTROPHIL # 20.1 K/uL (1.8-7.8); SEGMENTED NEUTROPHIL % 72 %
[2016-08-07 10:26] LABS: ALBUMIN 3.3 gm/dL (3.5-5.0); BLOOD UREA NITROGEN 42 mg/dL (6-24); CALCIUM 8.2 mg/dL (8.5-10.5); CHLORIDE 102 mMol/L (96-110); CREATININE 1.8 mg/dL (0.5-1.1); ESTIMATED GFR (MDRD EQUATION) 28; PHOSPHORUS 8.7 mg/dL (2.5-4.9); SODIUM 137 mMol/L (135-145)
[2016-08-07 10:27] LABS: CO2 < 5 mMol/L (22-32); POTASSIUM 5.6 mMol/L (3.7-5.1)
[2016-08-07] MEDS ORDERED: LEVEMIR100 UNIT/1 SUB-Q (11:55)
[2016-08-07 12:39] LABS: BLOOD UREA NITROGEN 40 mg/dL (6-24); CALCIUM 7.6 mg/dL (8.5-10.5); CHLORIDE 102 mMol/L (96-110); CREATININE 1.7 mg/dL (0.5-1.1); ESTIMATED GFR (MDRD EQUATION) 30; POTASSIUM 4.7 mMol/L (3.7-5.1); SODIUM 135 mMol/L (135-145)
[2016-08-07 12:40] LABS: CO2 < 5 mMol/L (22-32)
[2016-08-07 12:48] LABS: PO2 138 mmHg (80-90)
[2016-08-07 12:53] LABS: BICARBONATE < 3.0 mmol/L (18.0-23.0); PCO2 11 mmHg (35-45)
--- NOTE | 2016-08-07 14:39 | NUR ---
Patient admit to ICU from ED, was found unresponsive at home and brought in by [facility]. Upon arrival on the unit patient was arousable by voice, oriented to person only. Speech mumbled and slurred. HR sinus, hypotensive. 4L N/C to maintain sats greater than 90%. Lungs were slightly coarse in the upper lobes and clear and dim in the lowers. Bowel sounds hypoactive. Haq catheter patent. Insulin gtt at 8 units/hr, Bicarb, and D5W running after bolus. Levophed gtt started to keep MAPs greater than 65. Dr Hall placed central line.
[2016-08-07 16:05] LABS: CALCIUM 7.6 mg/dL (8.5-10.5); CREATININE 1.8 mg/dL (0.5-1.1)
[2016-08-07 16:07] LABS: ANION GAP 27.5 (10.0-19.0); POTASSIUM 3.5 mMol/L (3.7-5.1)
[2016-08-07 17:06] LABS: BICARBONATE 11.3 mmol/L (18.0-23.0); PCO2 21 mmHg (35-45); PO2 65 mmHg (80-90)
[2016-08-07 20:48] LABS: CALCIUM 8.1 mg/dL (8.5-10.5); CREATININE 1.6 mg/dL (0.5-1.1); POTASSIUM 3.5 mMol/L (3.7-5.1)
[2016-08-07 20:50] LABS: ANION GAP 19.5 (10.0-19.0)
[2016-08-07 23:47] LABS: ANION GAP 15.5 (10.0-19.0); CALCIUM 8.3 mg/dL (8.5-10.5); CREATININE 1.4 mg/dL (0.5-1.1); POTASSIUM 3.5 mMol/L (3.7-5.1)
[2016-08-08 04:24] LABS: ANION GAP 14.8 (10.0-19.0); CALCIUM 8.4 mg/dL (8.5-10.5); CREATININE 1.1 mg/dL (0.5-1.1); POTASSIUM 3.8 mMol/L (3.7-5.1)
[2016-08-08 04:30] LABS: BASOPHIL % 0.2 %; HEMATOCRIT 36.8 % (33.0-46.0); HEMOGLOBIN 13.4 g/dL (10.0-15.0); IMMATURE GRANULOCYTE % 0.2 %; LYMPHOCYTE # 1.3 K/uL (0.8-4.0); LYMPHOCYTE % 10.5 %; MCH 30.8 pg (27.0-34.0); MCHC 36.4 gm/dL (32.0-36.5); MONOCYTE # 1.6 K/uL (0.0-1.0); MPV 9.9 fl (9.4-12.4); NEUTROPHIL # (ANC) 9.2 K/uL (1.8-7.8); NEUTROPHIL % 76.1 %; NRBC % 0 /100WBC (0-0.00); RBC 4.35 M/uL (3.50-5.50); RDW-CV 12.5 % (11.9-14.6); WBC 12.1 K/uL (4.0-11.0)
[2016-08-08 04:34] LABS: MCV 84.6 fl (83.0-98.0); PLATELET COUNT 229 K/uL (150-450)
--- NOTE | 2016-08-08 05:01 | NUR ---
Disoriented to time. BRISA. Moves spontaneously. Confused. Doesn't follow commands. Very drowsy. SR with HR 80-90s. Continues on Levo, currently 0.01 mcg/kg/min. Afebrile. Cardiac enzymes continue to increase throughout shift. Continues on insulin gtt. Follow up: Continue to monitor Neuro status and control blood sugars.
[2016-08-08 06:44] LABS: MAGNESIUM 2.1 mg/dL (1.8-2.6)
[2016-08-08 06:45] LABS: PHOSPHORUS 1.2 mg/dL (2.5-4.9)
[2016-08-08 07:46] LABS: ANION GAP 17.7 (10.0-19.0); CALCIUM 8.2 mg/dL (8.5-10.5); CREATININE 1.1 mg/dL (0.5-1.1); POTASSIUM 4.7 mMol/L (3.7-5.1)
--- NOTE | 2016-08-08 10:52 | NUR ---
Speech Tx Note: Orders rec'd; Chart reviewed; Attempted to initiate speech/swallow evaluation; Pt was not alert enough to participate in evaluation. Will f/u and initiate evaluation when pt is more alert. Discussed with pt's RN with good understanding. Tara Mcrae M.A. [facility]ED MILL MANAGER
--- NOTE | 2016-08-08 12:49 | NUR ---
Introduced self and role of care management to patient's elder. Patient has eyes shut and doesn't attempt to join conversation. Most of conversation outside of patient's room. Elder says his Dad is at [facility]. He said he had a significant stroke about 7 years ago and Rose took care of him at home until about a year ago when she was sick and then Dad went to [facility]. He says Rose takes his dad to yarsani every Monday and to funerals and out to eat sometimes. He says Rose's home is [place] [facility] but he doesn't think she is living there. He think's Rose has a "friend" and she is staying at his place most of the time. Elder says he mows her yard and does things around her home [place] [facility] and that she isn't there. He says he hasn't met her friend or been to his house so he doesn't know if he would help her at the time of discharge or not. He says she did go to [facility] for awhile after her hospital stay last year and that might be an option again. He says her stepbrother SOURAV helps her the most with things like that. He doesn't know if SOURAV is her POA but says he acts like one. Elder says he tries to stay out of things and not push for answers, just help with the lawn work at her house adn do what she asks him too. He says I don't blame her for having a friend as life with Dad has been hard since his stroke. Will follow.
--- NOTE | 2016-08-08 17:01 | NUR ---
SIGNIFICANT EVENT: PATIENT HAS BEEN DROWSY THROUGHOUT THE DAY. OPENS EYES SPONTANEOUSLY AND TO VOICE. PUPILS EQUAL AND REACTIVE. OCCASIOANLLY NODS YES/NO APPROPRIATELY. ORIENTED TO PERSON CONSISTENTLY. AT TIMES ORIENTED TO PALCE. SPEECH IS MUMMBLED, SLOW, REPITITIVE AT TIMES. PATIENT FOLLOWS COMMANDS IN BILATERAL UPPER EXTREMITIES, EQUAL STRENGTH. PATIENT DOES NOT FOLLOW COMMANDS IN BILATERAL LOWER EXTREMITIES, MOVES SPONTANEOUSLY, WITHDRAWS TO PAIN. NO FACIAL ASYMMETRY NOTED. PATIENT IS TO GO TO CT OF HEAD. PATIENT HAS BEEN IN SINUS RHYTHM, HR 80-110S. PULSES PALPABLE THROUGHOUT. GEN EDEMA PRESENT. BP STABLE, SBP 90-10S, MAP>65. LEVOPHED DRIP WEANED TO OFF. MAX TEMP OF 100.1. PATIENT HAS BEEN ON ROOM AIR, SATS MID TO UPPER 90S. BOWEL SOUNDS PRESENT, 1 LARGE BM TODAY, FORMED. CONTEH INTACT, PERICARES THROUGHOUT THE SHIFT, ADEQUATE URINE OUTPUT. NO NEW SKIN ISSUES NOTED. ECHO AT BEDSIDE TODAY. CT OF ABDOMEN. CT OF HEAD. NEUROLOGY CONSULT. SPEECH EVAL TODAY FOLLOW UP: FOLLOW UP WITH IMAGING RESULTS
[2016-08-09 04:53] LABS: BLOOD UREA NITROGEN 19 mg/dL (6-24); CHLORIDE 113 mMol/L (96-110); CO2 19 mMol/L (22-32); CREATININE 0.9 mg/dL (0.5-1.1); ESTIMATED GFR (MDRD EQUATION) > 60; MAGNESIUM 1.7 mg/dL (1.8-2.6); PHOSPHORUS 1.6 mg/dL (2.5-4.9); SODIUM 142 mMol/L (135-145)
--- NOTE | 2016-08-09 05:04 | NUR ---
A/Ox3 with prompting. Drowsy. Moves spontaneously. Follows commands. SR 90-110s. SBP 100-110s. Tmax 99.8. Follow up: Continue to monitor neuro status.
[2016-08-09 05:10] LABS: BASOPHIL % 0.1 %; HEMOGLOBIN 12.7 g/dL (10.0-15.0); IMMATURE GRANULOCYTE # 0.1 K/uL (0.0-0.3); IMMATURE GRANULOCYTE % 0.9 %; LYMPHOCYTE # 2.1 K/uL (0.8-4.0); LYMPHOCYTE % 16.2 %; MCH 30.5 pg (27.0-34.0); MCHC 35.3 gm/dL (32.0-36.5); MCV 86.5 fl (83.0-98.0); MONOCYTE % 7.9 %; MPV 10.5 fl (9.4-12.4); NEUTROPHIL # (ANC) 9.7 K/uL (1.8-7.8); NEUTROPHIL % 74.9 %; NRBC % 0 /100WBC (0-0.00); RBC 4.16 M/uL (3.50-5.50); RDW-CV 13.8 % (11.9-14.6); WBC 12.9 K/uL (4.0-11.0)
[2016-08-09 05:11] LABS: PLATELET COUNT 176 K/uL (150-450)
--- NOTE | 2016-08-09 15:53 | NUR ---
SIGNIFICANT EVENT: Patient is oriented x3, responds to commands but can be irritable and impulsive when drowsy. Pupils are reactive to light 4 and B. MRI done today, results are pending. Currently on Room Air with sats in the 90s, clear and dim lung sounds. Small BM today. Haq patent with confirmed UTI, treating with Zosyn. Heparin drip continued in triple lumen R) central line. Patient ambulates with 2A to commode and bedside. Skin is intact.
--- NOTE | 2016-08-09 16:05 | NUR ---
I have read and reviewed the charting of Blanka Oliver and agree with what she has documented.
--- NOTE | 2016-08-10 04:36 | NUR ---
Significant Event:PATIENT IS A/OX3. FOLLOWS COMMANDS. MOVES ALL EXTREMITIES. PERRLA. VSS. AFEBILE. REMAINS ON RA, O2 SATS GREATER THAN 92%. CONTEH TO DD WITH ADEQ UOP. NO BM DURING SHIFT. HEPARIN RUNNING AT 900UNITS. NPO SINCE MIDNIGHT FOR STRESS TEST IN AM. Follow up: STRESS TEST IN AM./DIET
[2016-08-10 04:55] LABS: BLOOD UREA NITROGEN 14 mg/dL (6-24); CALCIUM 7.6 mg/dL (8.5-10.5); CHLORIDE 113 mMol/L (96-110); CO2 22 mMol/L (22-32); CREATININE 0.8 mg/dL (0.5-1.1); ESTIMATED GFR (MDRD EQUATION) > 60; PHOSPHORUS 2.7 mg/dL (2.5-4.9); SODIUM 144 mMol/L (135-145)
[2016-08-10 05:04] LABS: HEMATOCRIT 33.9 % (33.0-46.0); HEMOGLOBIN 11.6 g/dL (10.0-15.0); IMMATURE GRANULOCYTE # 0.1 K/uL (0.0-0.3); IMMATURE GRANULOCYTE % 0.6 %; MCH 30.6 pg (27.0-34.0); MCHC 34.2 gm/dL (32.0-36.5); MCV 89.4 fl (83.0-98.0); MONOCYTE # 0.4 K/uL (0.0-1.0); MONOCYTE % 4.6 %; MPV 10.6 fl (9.4-12.4); NEUTROPHIL # (ANC) 6.6 K/uL (1.8-7.8); NEUTROPHIL % 72.8 %; NRBC % 0 /100WBC (0-0.00); PLATELET COUNT 142 K/uL (150-450); RBC 3.79 M/uL (3.50-5.50); RDW-CV 14.4 % (11.9-14.6); WBC 9.1 K/uL (4.0-11.0)
--- NOTE | 2016-08-10 10:00 | NUR ---
Diabetes consult: Nursing reports patient is currently down having a stress test done. Nurse indicates that today may not be the best day for education. Will have CDE see on .
--- NOTE | 2016-08-10 16:19 | NUR ---
Significant Event: TX OUT OF THE ICU AT 0640. VSS AND RA. AFEBRILE. TYLENOL X1 THIS AFTERNOON FOR CHRISTENSEN AND BACK ACHE, WITH RELIEF. MORE ALERT T/O THE DAY, STRESS TEST DONE. WORKS WITH PT/OT/ST. UP TO RECLINER WITH A 1A THIS AFTERNOON. HEPARIN GTT CONTINUES PER PROTOCOL TO RT)SC-NEXT PTTHP AT 1730. PO LEVAQUIN STARTED; ZOSYN D/C'D. DENIES ANY NUMBNESS OR TINGLING. DISORIENTED DATE THIS AM, BUT A/O X3 THIS AFTERNOON. ORDER FOR PUREED DIET WITH THIN LIQUIDS, TOLERATES WELL. ACCUCHECK AT 1100 WAS 411/[phone], BUT HAD JUST BEEN GIVEN A REGULAR POP IN STRESS TEST; GAVE 12 UNITS NOVOLOG AND LEVEMIR DOSE INCREASED TO 10 UNITS IN THE AM. REPOSITIONED Q2H. CONTEH PATENT WITH 900 MLS UOP. Follow up: CONTINUE PLAN OF CARE.
--- NOTE | 2016-08-10 16:58 | NUR ---
Introduced self and role of care management to patient early afternoon. She says she lives in [place] with a friend. Talked with her about skilled care and therapy. She says she will not be going to a fci and will be going to stay with her friend. She then tells me her is at a fci and she will not go to one. Asked her if friend works and she says yes. She says her friend can adjust his schedule and he will be available to assist her at home. Says she has a brother in [place] who is her POA. Talked to her about [facility] and she is open to [facility]. Call from Dr. Waldrpo and he is concerned about patient at home and how she manages at home. Updated him on conversation with patient and with the stepson. He asks if friend and stepson would come and talk together at the hospital. Told him I doubt it as elder was clear to me he doesn't want to get overly involved and doesn't push the issue about her living with a friend. Told him the stepson has never met the friend. Talked to patient again and she says Dr. Benjamin is her PCP. Dr. Benjamin was on the unit and asked him what he knows about the friend and he says he knows she is living with someone but has never met him and that patient does not come to see him very often. Will see if can find out contact information for her friend. Will follow.
[2016-08-11 05:39] LABS: HEMATOCRIT 34.3 % (33.0-46.0); HEMOGLOBIN 11.7 g/dL (10.0-15.0); IMMATURE GRANULOCYTE % 0.2 %; LYMPHOCYTE # 2.9 K/uL (0.8-4.0); LYMPHOCYTE % 35.3 %; MCH 30.9 pg (27.0-34.0); MCHC 34.1 gm/dL (32.0-36.5); MCV 90.5 fl (83.0-98.0); MONOCYTE # 0.4 K/uL (0.0-1.0); MONOCYTE % 4.7 %; MPV 9.8 fl (9.4-12.4); NEUTROPHIL # (ANC) 4.9 K/uL (1.8-7.8); NEUTROPHIL % 59.8 %; NRBC % 0 /100WBC (0-0.00); PLATELET COUNT 163 K/uL (150-450); RBC 3.79 M/uL (3.50-5.50); WBC 8.1 K/uL (4.0-11.0)
[2016-08-11 05:52] LABS: ANION GAP 12.9 (10.0-19.0); BLOOD UREA NITROGEN 13 mg/dL (6-24); CALCIUM 7.8 mg/dL (8.5-10.5); CHLORIDE 110 mMol/L (96-110); CO2 23 mMol/L (22-32); CREATININE 0.8 mg/dL (0.5-1.1); ESTIMATED GFR (MDRD EQUATION) > 60; MAGNESIUM 1.8 mg/dL (1.8-2.6); POTASSIUM 3.9 mMol/L (3.7-5.1); SODIUM 142 mMol/L (135-145)
--- NOTE | 2016-08-11 12:49 | NUR ---
A - NUT F/U. 1+ EDEMA. LABS: ACCUCEHCK REAS->300, GLU 113. MEDS: LEVEMIR, D5W, EFFEXOR, SSI, SYNTHROID, LEVAQUIN, NAUSEA. DIET: NPO. NO INTAKE RECORDED WHEN ON PUREED x 1 DAY. NEEDS: [id number] KCAL, 73-88 G PRO D - INADEQUATE NUTRIENT INTAKE R/T DECREASED APPETITE, NPO STATUS AEB INTAKE RECORD, DIET ORDER HX. I - GOAL FOR INCREASED ORAL INTAKE. WILL ADD GLUCERNA TID M/E - WILL MONITOR INTAKE AND F/U IN 4-6 DAYS.
--- NOTE | 2016-08-11 16:56 | NUR ---
[facility] note: 1330 At the time CDE went to patient's room, she had visitor and was not willing to talk about her Diabetes. Diabetes Management Booklet and Diabetes Survival Skills checklist was left with the patient and will return on 08/12/16 to further assess educational needs.
--- NOTE | 2016-08-11 19:08 | NUR ---
Significant Event: Patient alert and oriented x3. SBP 120s-150s. All other vital signs stable. On RA. Patient down for heart cath today. Rt. groin site C/D/I. No hematoma. No interventions done. No complaints of pain this shift. 1 assist to chair. No diarrhea this shift. Haq patent with 525ml uop. Heparin D/C'd. ACHS accuchecks: 233, 241, 120. Subclavian central line saline locked. Patient calm and cooperative with all cares. Anxious to go home. Follow up: Will continue to monitor per plan of care.
--- NOTE | 2016-08-12 04:08 | NUR ---
Significant Event: A&Ox3, VSS on room air. Right groin dressing C/D/I with no complications. Triple lumen right central line SL with no complications. ACHS and AM/HS levemir. Patient repositions self. Haq patent and to be removed this AM. Two liquid INC stools this shift. C-Diff negative and Immodium started with relief. Patient denies needs. Follow up: D/C today.
[2016-08-12 07:51] LABS: ANION GAP 11.7 (10.0-19.0); BLOOD UREA NITROGEN 9 mg/dL (6-24); CALCIUM 7.9 mg/dL (8.5-10.5); CHLORIDE 108 mMol/L (96-110); CO2 25 mMol/L (22-32); CREATININE 0.7 mg/dL (0.5-1.1); ESTIMATED GFR (MDRD EQUATION) > 60; MAGNESIUM 1.6 mg/dL (1.8-2.6); POTASSIUM 3.7 mMol/L (3.7-5.1); SODIUM 141 mMol/L (135-145)
[2016-08-12 07:53] LABS: BASOPHIL % 0.2 %; HEMATOCRIT 34.4 % (33.0-46.0); HEMOGLOBIN 11.6 g/dL (10.0-15.0); IMMATURE GRANULOCYTE % 0.4 %; LYMPHOCYTE # 2.2 K/uL (0.8-4.0); LYMPHOCYTE % 40.2 %; MCH 30.4 pg (27.0-34.0); MCHC 33.7 gm/dL (32.0-36.5); MCV 90.3 fl (83.0-98.0); MONOCYTE # 0.4 K/uL (0.0-1.0); MONOCYTE % 6.7 %; NEUTROPHIL # (ANC) 2.8 K/uL (1.8-7.8); NEUTROPHIL % 52.5 %; NRBC % 0 /100WBC (0-0.00); PLATELET COUNT 164 K/uL (150-450); RBC 3.81 M/uL (3.50-5.50); RDW-CV 13.8 % (11.9-14.6); WBC 5.4 K/uL (4.0-11.0)
--- NOTE | 2016-08-12 10:23 | NUR ---
Diabetes Center note: 0930 Patient has completed the Diabetes Survival Skills checklist list. and is placed on her chart. Several topics reviewed with patient. A1C was 10.4 %, discussed target of 7%, Patient report that she only checks her blood sugar once per day, in a.m. Encouraged to increase frequency of testing, FBS and post meals to assess whether we need to make insulin dose changes. Recent UTI, CDE explained that with better blood sugar control, we can reduce risks of complications of diabetes and reduce risks of infections. Patient states that when she was in Doctor's office before she was admitted to the hospital, this week, that MD did make some insulin changes and she needs to leaf size picker her new medication and supplies, after she gets dismissed from the hospital. When asked if she has help at home, she states she has a friend that helps her, and can assist in reminding her to take her insulin at appropriate times. Offered on-going Follow up appt. but patient denies need for that at this time, Phone number provided if she has questions or concerns regarding her diabetes after she is dismissed (probably today)
--- NOTE | 2016-08-12 12:24 | NUR ---
Social visit with patient today. We discussed discharge plans. I explained that Dr Waldrop wanted her to have home health follow on discharge. She stated she did not really think she needed it. After speaking with Dr Waldrop she changed her mind and is agreeable to home health. I gave her the options of [facility] or [facility]. She thought her had [facility] so she chose [facility]. I called and made referral to [facility] and faxed referral information.
[2016-08-12] MEDS ORDERED: LIPITOR40 MG PO (12:48)
[2016-08-12] MEDS ORDERED: LEVAQUIN 750 M750 MG PO (12:53)
--- NOTE | 2016-08-12 14:40 | NUR ---
Patient discharged to home at 1422 with home health. Central line discontinued at 1400. Patient alert and oriented x 3. Vital signs stable. Up to bathroom and in halls with stand by assist. Patient assisted to son's vehicle at 1422 in wheelchair by student nurse. Verbalizes understanding of discharge teaching by Kyra Desir RN.
--- NOTE | 2016-08-12 16:15 | NUR ---
Patient teaching done on new medications, discharge instructions, follow-up appointments, post cath instructions for home care, and prescriptions. VSS. Student nurse walked patient out to care at 1422.
== END 2016-08-12 14:22 | disposition home health service (06) | DRG 871 ==
LOC: GMED 08:11 → GICU 10:44 → GPCU 10:44 → GICU 08-08 21:20 → GPCU 08-10 06:53
PROVIDERS: Emergency Medicine; Internal Medicine; Internal Medicine Interventional Cardiology; ADMIT Hospitalist
DX: A41.89 Other specified sepsis (principal); E13.11 Other specified diabetes mellitus with ketoacidosis with coma; I63.9 Cerebral infarction, unspecified; I21.4 Non-ST elevation (NSTEMI) myocardial infarction; J96.01 Acute respiratory failure with hypoxia; G93.40 Encephalopathy, unspecified; R57.9 Shock, unspecified; R13.10 Dysphagia, unspecified; N17.9 Acute kidney failure, unspecified; E87.1 Hypo-osmolality and hyponatremia; N39.0 Urinary tract infection, site not specified; E86.0 Dehydration; E87.5 Hyperkalemia; I25.10 Atherosclerotic heart disease of native coronary artery without angina pectoris; Z79.4 Long term (current) use of insulin; E03.9 Hypothyroidism, unspecified; L98.8 Other specified disorders of the skin and subcutaneous tissue; I10 Essential (primary) hypertension; E78.5 Hyperlipidemia, unspecified; B96.1 Klebsiella pneumoniae [K. pneumoniae] as the cause of diseases classified elsewhere; E83.39 Other disorders of phosphorus metabolism; Z79.82 Long term (current) use of aspirin
CPT/HCPCS: A9500; C1760; C8929; J1644; J2250; J2405; J2543; J2785; J3010; J3370; J3475; J3480; J7030; J7050; J7060; J7121; Q9957

== ENCOUNTER → 2016-08-07 | Outpatient (CLI) | payer MEDICARE ==
[~2016-08-07] MED LIST: ALDACTONE25 MG PO; ALTACE10 MG PO; AMARYL2 MG PO; ASPIRIN (CHILDR81 MG PO; BYSTOLIC5 MG PO; DEXILANT60 MG PO; EFFEXOR XR150 MG PO; GLUCOPHAGE1000 MG PO; HUMULIN 70100 UNIT/1 SUB-Q; HUMULIN 70100 UNIT/M SUB-Q; LANTUS SOL100 UNIT/1 SUB-Q; LASIX40 M1 PO; LEVAQUIN 750 M750 MG PO; LEVEMIR100 UNIT/1 SUB-Q; LEVOTHROID (SY88 MCG PO; LIPITOR40 MG PO; LIPITOR80 MG PO; NOVOLOG100 UNIT/M SUB-Q; TRICOR145 MG PO; VICTOZA 3-0.6 MG/0.1 SUB-Q; ZOCOR40 MG PO; [UNRECOGNIZED DRUG - SUPPLY]; [UNRECOGNIZED DRUG - SUPPLY]
== END | disposition disaster alternative care site (69) ==
LOC: GAMB 07:45
DX: E11.65 Type 2 diabetes mellitus with hyperglycemia (principal); R53.1 Weakness
CPT/HCPCS: A0422; A0425; A0427; J7030

== ENCOUNTER 2016-08-16 17:57 | Emergency (ER) | payer MEDICARE ==
[~2016-08-16 17:57] MED LIST changes: +LEVAQUIN 750 M750 MG PO; +LIPITOR40 MG PO
== END 2016-08-16 18:30 | disposition disaster alternative care site (69) ==
LOC: GAMB 17:57
DX: E11.649 Type 2 diabetes mellitus with hypoglycemia without coma (principal)
CPT/HCPCS: J2405

== ENCOUNTER → 2016-09-01 | Outpatient (CLI) | payer MEDICARE ==
[~2016-09-01] MED LIST changes: +AMARYL2 MG PO; +HUMULIN 70100 UNIT/1 SUB-Q; +HUMULIN 70100 UNIT/M SUB-Q; +NOVOLOG100 UNIT/M SUB-Q
[2016-09-01 14:54] LABS: ANION GAP 14.8 (10.0-19.0); CALCIUM 8.5 mg/dL (8.5-10.5); CREATININE 1.3 mg/dL (0.5-1.1); POTASSIUM 3.8 mMol/L (3.7-5.1)
== END | disposition disaster alternative care site (69) ==
LOC: LGSOS 14:42
PROVIDERS: Internal Medicine Interventional Cardiology
DX: Z79.899 Other long term (current) drug therapy (principal)

== ENCOUNTER 2016-10-27 18:21 | Inpatient (IN) | payer MEDICARE ==
[~2016-10-27] VITALS: Ht 157.5 cm; Wt 73.7 kg
--- NOTE | ~2016-10-27 | ER ---
PATIENT'S NAME: MADDIE DENSON [facility] AGE: 71 Y [address] ROOM: [address] [address] LOCATION: [facility] ADMIT DATE: 10/27/2016 ER/Outpatient Report DISCHARGE DATE: FAMILY PHYSICIAN: PHYSICIAN, UNKNOWN ATTENDING PHYSICIAN: ELENA KELLOGG V CHIEF COMPLAINT: General malaise. HISTORY OF PRESENT ILLNESS: Ms. Denson presents by private vehicle for evaluation of low blood sugars. EMS was called for unresponsive episode. The patient was found to have a blood glucose of 22. She was given D50 and was able to eat a sandwich, was feeling better, and refused transport, but did come in. She follows with Dr. Benjamin. They have been adjusting her Lantus recently because her blood sugars have been very labile. She cut back to 9 units of Lantus at night, and her a.m. sugar this morning was 99. This is the best it has been in several days. She takes a very large a.m. dose of Lantus. She states she has a very poor appetite overall. Today, she felt that she had a decent morning, but fell asleep in her chair around noon and did not eat her noon meal; and her significant other was able to find her at around 5 p.m. at which point she was unresponsive; and the unit was called. She was able to drive into the ER, I believe, either by herself or by her significant other, but is not accompanied by anyone during her ER evaluation. She has no specific complaints other than feeling cold and shaky and weak. PAST MEDICAL HISTORY: Documented on the record and reviewed by me. SOCIAL HISTORY: Documented on the record and reviewed by me. ALLERGIES: DOCUMENTED ON THE RECORD AND REVIEWED BY ME. REVIEW OF SYSTEMS: All systems reviewed and negative except as noted in the HPI. PHYSICAL EXAMINATION: VITAL SIGNS: Blood pressure 153/73, pulse 84, respiratory rate 16, temperature 97, SpO2 is 99% on room air. Pain 0/10. GENERAL: An age-appropriate female, frail appearance. Slightly tremulous versus shivering, but otherwise grossly unremarkable. NEUROLOGIC: Awake and alert. GCS is 15. No obvious deficits or abnormalities. Slight tremor noted. PATIENT'S NAME: MADDIE DENSON [facility] AGE: 71 Y [address] ROOM: [id number] [place], [place] [address] LOCATION: [facility] ADMIT DATE: 10/27/2016 ER/Outpatient Report DISCHARGE DATE: FAMILY PHYSICIAN: PHYSICIAN, UNKNOWN ATTENDING PHYSICIAN: ELENA KELLOGGENT: Normocephalic and atraumatic. Eyes are PERRL. Oropharynx is clear. NECK: Supple. Trachea is midline. CHEST/HEART: Regular rate and rhythm. No murmurs. LUNGS: Clear to auscultation bilaterally. No rhonchi, wheezes, or rales. ABDOMEN: Soft, nontender, and nondistended. No rebound or guarding. BACK: Back is normal to inspection and palpation. No CVA tenderness. EXTREMITIES: Warm and well perfused. SKIN: Appears to be grossly intact. LABORATORY DATA AND X-RAYS: Chest x-ray, grossly unremarkable per my review. CBC without appreciable abnormality of white count, hemoglobin, or platelets. INR is less than 1. CMS, no electrolyte abnormalities. BUN is 23, creatinine is 1.2. GFR is 46. Appears to be near baseline. No abnormalities of the renal function test. CRP is 0.36. Free T4 is 1.2. TSH is 2.32. Procalcitonin is below detectable threshold. Serum lactate is 4.7. Urinalysis with 500 leukocytes and 50 glucose. No blood. Micro not consistent with infection, few bacteria, 2 to 5 epithelial, 5 to 10 white count. IMPRESSION: Labile blood sugars with severe hypoglycemic episode causing life-threatening encephalopathy earlier today, improved. EMERGENCY DEPARTMENT COURSE: The patient was seen and evaluated. She was given D5 half-normal for volume resuscitation in the setting of lactic acidemia. This will also help with her low blood sugars. It does not appear as though she is in a safe environment. She has no one at home tonight. I discussed case with Dr. Benjamin, the patient's primary care provider; and we will bring her into the hospital under the hospitalist service guidance for further evaluation and treatment of her labile blood sugars to further delineate what is going on for her. The patient was amenable to this. All questions were answered. The patient was admitted without further issue. MD HARIS COSTELLO/modl /[id number] d: 10/28/16 0519 t: 11/01/16 1233, OUTPATIENT REPORT
--- NOTE | ~2016-10-27 | DS ---
PATIENT'S NAME: MADDIE DENSON [facility] AGE: 71 Y [address] ROOM: [address] [place], [place] [address] LOCATION: [facility] ADMIT DATE: 10/27/2016 Discharge Summary DISCHARGE DATE: 10/30/2016 FAMILY PHYSICIAN: Darius Benjamin MD ATTENDING PHYSICIAN: Benito Keys V PRIMARY DIAGNOSES: 1. Severe hypoglycemia. 2. Lactic acidosis. 3. Diabetes mellitus type 2. 4. Essential hypertension. 5. Dyslipidemia. 6. Acute kidney injury. 7. Hypothyroidism. 8. Anxiety/depression. OPERATIONS/PROCEDURES: None. HISTORY OF PRESENTING ILLNESS/REASON FOR ADMISSION: Please refer to the H and P dictated on 10/27/[address] Keys. HOSPITAL COURSE: The patient was admitted to the hospital as noted above with a presumptive diagnosis of severe hypoglycemia without coma and lactic acidosis. She had recently undergone a series of adjustments to her insulin on an outpatient basis. She has had wildly vacillating blood sugars and episodes of hypoglycemia at home. After her admission, she did continue to receive long-acting insulin. Unfortunately, she did develop recurrent bouts of hypoglycemia while she was inpatient. Long-acting insulin was discontinued and she was managed with sliding scale insulin and oral hypoglycemic therapy. The metformin was held because of the development of lactic acidosis in the setting of acute kidney injury. After she was adequately hydrated, the metformin was re-initiated. At that point, it was felt she would be stable enough for discharge to home on oral hypoglycemic therapy with metformin and glimepiride and no additional insulin therapy. DISCHARGE INSTRUCTIONS: DIET: ADA, 1800-calorie per day as tolerated. ACTIVITY: As tolerated. MEDICATIONS: 1. Metformin 1000 mg p.o. b.i.d. PATIENT'S NAME: MADDIE DENSON [facility] AGE: 71 Y [address] ROOM: [address] [place], [place] [address] LOCATION: [facility] ADMIT DATE: 10/27/2016 Discharge Summary DISCHARGE DATE: 10/30/2016 FAMILY PHYSICIAN: Darius Benjamin MD ATTENDING PHYSICIAN: Benito Keys V 2. Amaryl 2 mg p.o. q.a.m. 3. Aspirin 81 mg p.o. daily. 4. Atorvastatin 40 mg p.o. q.h.s. 5. Levothyroxine 88 mcg p.o. daily. 6. Glimepiride 2 mg p.o. q.a.m. 7. Bystolic 2.5 mg p.o. q.h.s. 8. Effexor XR 150 mg p.o. q.h.s. 9. Lasix 20 mg p.o. q.48 hours. FOLLOWUP: She will follow up with Dr. Benjamin in 5 to 7 days. She will have home health with [facility] followup. CONDITION ON DISCHARGE: Fair. TIME SPENT: Total time spent on discharge process 40 minutes. MD IWONA RIVAS/josiah /[id number] d: 10/31/16 0357 t: 11/02/16 1433, DISCHARGE SUMMARY
--- NOTE | ~2016-10-27 | PN ---
PATIENT'S NAME: ROSE DENSON [facility] AGE: 71 Y [address] ROOM: [address] [address] LOCATION: [facility] ADMIT DATE: 10/27/2016 Progress Notes DISCHARGE DATE: 10/30/2016 FAMILY PHYSICIAN: Gurvinder Benjamin MD ATTENDING PHYSICIAN: Benito Keys V DATE OF SERVICE: 10/29/2016 CLINICAL UPDATE: Rose Denson is one of my primary care patients I see in the outpatient arena. She had been seen a couple days prior to admission for hypoglycemia. She was evaluated the emergency room by Dr. Ramon, ER physician. She had a blood sugar of 22 when the ambulance got to her house after she had been found unresponsive. Dr. Ramon called me, and I recommended the patient be seen by the hospital specialist. Today when I stopped by to see the patient on social visit on 10/29/2016, she is aware that her care is being given by the hospital specialist here since admission and will continue. She will see me for followup on dismissal at my clinic. GURVINDER BENJAMIN MD [employer]ORER [employer]/modl /[id number] d: t: 10/31/16 0852, PROGRESS NOTES
--- NOTE | ~2016-10-27 | HP ---
PATIENT'S NAME: MADDIE DENSON [facility] AGE: 71 Y [address] ROOM: [place] [address] LOCATION: [facility] ADMIT DATE: 10/27/2016 History & Physical DISCHARGE DATE: FAMILY PHYSICIAN: PHYSICIAN, UNKNOWN ATTENDING PHYSICIAN: ELENA KELLOGG V DATE OF SERVICE: CHIEF COMPLAINT: Low blood sugars. HISTORY OF PRESENT ILLNESS: The patient is a 71-year-old female with past medical history of insulin- dependent diabetes. The patient has been having a lot of difficulty with her glycemic control despite medication changes done by her PMD, Dr. Benjamin. She is not a very good historian, but she does say that she has been having blood sugars in the 50s in the morning. Due to this, her glycemic regimen was changed from Levemir 30 in the morning and 10 at night with 1000 of metformin b.i.d. to Levemir 30 in the morning and 8 at night. This seems to initially have improved her blood sugars yesterday, but today, the patient felt progressively more hypoglycemic and eventually lost consciousness. When the paramedics arrived, her Accu-Chek was 27. The patient was taken to the ER, and at this point, her Accu-Chek is 130, and she is not reporting any symptoms, but she is understandably concerned about difficulty in controlling her blood sugar. She reports that she has been a diabetic for last seven years. In fact, she was in our facility with profound DKA several weeks back. She denies any fevers, chills, nausea, vomiting, or diaphoresis. REVIEW OF SYSTEMS: All systems have been reviewed and are negative aside from pertinent positives mentioned above. PAST MEDICAL HISTORY: Essential hypertension, insulin-dependent diabetes, depression, and hypothyroidism. CURRENT MEDICATIONS: 1. Metformin 1000 b.i.d. 2. Lantus 30 subcu q.a.m. and 8 p.m. 3. Levothyroxine daily. 4. Bystolic daily. 5. "Antidepressant.". PATIENT'S NAME: MADDIE DENSON [facility] AGE: 71 Y [address] ROOM: [place] [address] LOCATION: [facility] ADMIT DATE: 10/27/2016 History & Physical DISCHARGE DATE: FAMILY PHYSICIAN: PHYSICIAN, UNKNOWN ATTENDING PHYSICIAN: ELENA KELLOGG V 6. Furosemide every other day. SOCIAL HISTORY: Negative for any ongoing toxic habits. The patient resides with a friend who apparently is the one who called the Paramedics today. FAMILY HISTORY: Reviewed and is noncontributory due to advanced age. PHYSICAL EXAMINATION: VITAL SIGNS: Blood pressure of 153/73, temperature 97, saturating 99% on room air, pulse is 84, and respirations 16, GENERAL: Well-developed, well-nourished, elderly female, in no acute distress. NEUROLOGICAL: Nonfocal. EYE: Shows pupils are equal and reactive to light. LYMPHATIC: Shows no cervical lymphadenopathy. ENDOCRINE: Shows no thyromegaly. LUNGS: Clear to auscultation. HEART: Rate is regular. GI: Abdomen is soft, nontender, and nondistended. : Reveals no costovertebral angle tenderness. VASCULAR: 2+ pedal pulses. MUSCULOSKELETAL: No muscle or joint abnormalities. PSYCHIATRIC: Appropriate mood, cognition, and affect. SKIN: Warm and dry. LABORATORY DATA: Studies in the ER significant for creatinine of 1.2, which I believe is slightly above her implied baseline. Latest Accu-Chek was 130. CBC is unremarkable. ASSESSMENT AND PLAN: This is a 71-year-old female, who will be admitted for observation with, 1. Severe hypoglycemia; at this point, the patient does need to have a diabetic regimen optimized. We will continue her metformin and change her Levemir to 30 units at night. Based on her glucose trend, we will make following decisions, but we will also request a inclusion paraeducator to examine the patient as she may benefit from an addition of a sliding scale instead of bolus insulin. She may also benefit from an evaluation by an property management specialist. 2. Essential hypertension. We will continue her Bystolic. 3. Hypothyroidism. We will continue her Synthroid. 4. Mild creatinine elevation. We will monitor her renal function. This may be due to some dehydration associated with her hypoglycemia and decreased PATIENT'S NAME: MADDIE DENSON [facility] AGE: 71 Y [address] ROOM: [place] [address] LOCATION: [facility] ADMIT DATE: 10/27/2016 History & Physical DISCHARGE DATE: FAMILY PHYSICIAN: PHYSICIAN, UNKNOWN ATTENDING PHYSICIAN: ELENA KELLOGG V oral intake. 5. Deep vein thrombosis prophylaxis will be instituted if the patient spends more than 48 hours in the hospital. Additional management will depend on clinical course. Time dedicated to the patient's encounter is 35 minutes. MD DUSTIN BETTENCOURT/josiah /[id number] D: [id number] T: [id number] HISTORY & PHYSICAL
[~2016-10-27 18:21] MED LIST changes: -AMARYL2 MG PO; -HUMULIN 70100 UNIT/1 SUB-Q; -HUMULIN 70100 UNIT/M SUB-Q; -NOVOLOG100 UNIT/M SUB-Q
[2016-10-27 19:16] LABS: HEMATOCRIT 41.7 % (33.0-46.0); HEMOGLOBIN 14.2 g/dL (10.0-15.0); IMMATURE GRANULOCYTE % 0.3 %; LYMPHOCYTE # 1.2 K/uL (0.8-4.0); LYMPHOCYTE % 13.2 %; MCH 31.7 pg (27.0-34.0); MCHC 34.1 gm/dL (32.0-36.5); MCV 93.1 fl (83.0-98.0); MONOCYTE # 0.2 K/uL (0.0-1.0); MONOCYTE % 2.4 %; MPV 9.9 fl (9.4-12.4); NEUTROPHIL # (ANC) 7.3 K/uL (1.8-7.8); NEUTROPHIL % 84.1 %; NRBC % 0 /100WBC (0-0.00); PLATELET COUNT 245 K/uL (150-450); RBC 4.48 M/uL (3.50-5.50); RDW-CV 13.2 % (11.9-14.6); WBC 8.7 K/uL (4.0-11.0)
[2016-10-27 19:16] LABS: BILIRUBIN URINE NEGATIVE (NEGATIVE); BLOOD URINE NEGATIVE /UL (NEGATIVE); COLOR URINE YELLOW (YELLOW); GLUCOSE URINE 50 mg/dL (NEGATIVE); KETONE URINE NEGATIVE (NEGATIVE); LEUKOCYTES URINE 500 /UL (NEGATIVE); NITRITE URINE NEGATIVE (NEGATIVE); PROTEIN URINE NEGATIVE (NEGATIVE); TURBIDITY URINE 1+ (CLEAR); UROBILINOGEN URINE NORMAL (NORMAL)
[2016-10-27 19:24] LABS: PROTIME 9.4 SECONDS (9.8-11.4)
[2016-10-27 19:25] LABS: RBC URINE RARE #/HPF (NEGATIVE)
[2016-10-27 19:26] LABS: AMORPHOUS URINE 1+ (NEGATIVE); BACTERIA URINE FEW (NEGATIVE)
[2016-10-27 19:28] LABS: PTT 26 SECONDS (25-32)
[2016-10-27 19:42] LABS: ALBUMIN 3.7 gm/dL (3.5-5.0); ANION GAP 14.7 (10.0-19.0); CALCIUM 8.6 mg/dL (8.5-10.5); CREATININE 1.2 mg/dL (0.5-1.1); POTASSIUM 4.7 mMol/L (3.7-5.1); TOTAL PROTEIN 7.1 g/dL (6.0-8.4)
[2016-10-27 19:45] LABS: TOTAL BILIRUBIN 0.3 mg/dL (0.0-1.5)
--- NOTE | 2016-10-28 03:12 | NUR ---
PATIENT ADMITTED FOR HYPOGLYCEMIA. FOUND BLOOD SUGAR AT HOME TO BE 22, CALLED EMS AND GOT FULL AMP OF DEXTROSE. CAME TO ER BY PRIVATE AUTO AFTER EATING PEANUT BUTTER SANDWHICH. HAS BEEN HAVING ISSUES WITH BLOOD SUGAR CONTROL FOR ABOUT 3 WEEKS NOW. SURGICAL HX INCLUDES: GALLBLADDER REMOVAL AND HYSTERECTOMY. MEDICAL HX INCLUDES: RADICULOPATHY, [place], HEARING AID R) EAR, HIGH CHOLESTEROL, HTN, GERD, URINARY FREQUENCY, DEPRESSION, GRAVES DISEASE, HYPOTHROID DISEASE, TYPE II DIABETES.
[2016-10-28 04:50] LABS: ANION GAP 10.2 (10.0-19.0); CALCIUM 8.2 mg/dL (8.5-10.5); CREATININE 0.9 mg/dL (0.5-1.1)
[2016-10-28 04:51] LABS: POTASSIUM 4.2 mMol/L (3.7-5.1)
--- NOTE | 2016-10-28 07:35 | NUR ---
Significant Event: ADMIT FOR HYPOGLYCEMIA. ACCUCHECKS Q4HRS X2 MORE THEN AC/HS, NO SSI. LAST ACCUCHECK AT 0300 WAS 38 & 46; CALLED TO DR KELLOGG. GAVE FULL AMP DEXTROSE 50 AND CHANGED IV FLUIDS TO D10 @ 30ML/HR. PATIENT WAS ASLEEP AND WAS NOT DIAPHORETIC WHEN AWOKEN FOR ACCUCHECK. FOLLOW-UP ACCHECK WITHIN 15MIN WAS 154. IV TO R) ANTECUBITAL FLUSHES WELL AND HAS BLOOD RETURN. UP WITH 1 ASSIST, GAIT BELT. GAIT IS SLIGHTLY UNSTEADY. HELD HS LEVEMIR AND METFORMIN. WILL HAVE DIABETIC ED SEE TODAY. Follow up: MONITOR ACCUCHECKS.
--- NOTE | 2016-10-28 09:00 | NUR ---
Diabetes consult: Patient admitted after hypoglycemic event at home. Patient reports having Type II diabetes for 7 years and states she was controlled on Metformin until 3 months ago. Patient indicates she had a "high" A1C and was started on a basal insulin. Since that time, she reports having multiple low blood sugars in the 20-30's. The patient has been seeing Dr. Alvarado and insulin doses and medications adjustments have been attempted. She indicates her last A1C was last Monday and was 8.5% (hospital record indicates A1C of 10.4 on 08/07/2016). The patient reports having taken Levemir 30 units on the morning of 10/27 and experienced blood sugars in the 30's early this morning. The patient lives alone and reports eating 1-2 meals per day. She states she has not had much of an appetite. She denies any changes in weight. The patient reports having limited s/s during a hypoglcyemic event. She states she only " feels tired". The patient is taking bystolic which may contribute to her hypoglycemic unawareness. Currently, she is not receiving any insulin or oral glycemic agents. IVF's of D10 infusing. If the patient continues to experience hypoglycemia, I would be suspect an insulinoma. If blood sugars stablize the patient may be able to be controlled on oral glycemics. She reports only being on metformin. A DDP-4 inhibitor, such as Januvia, may be the safer option, with less risk for development of hypoglycemia.
--- NOTE | 2016-10-28 13:37 | NUR ---
Significant Event: Patient blood sugar low at [address] Bain notified and order received for 1/2 amp of D50 IV. This was given at 0918 and accucheck was rechecked and noted at 157. Patient also ate about 25% of her breakfast and did have an orange juice at that time. At 1038, accucheck was 110 and nurse repeated accucheck at 1306 due to patient sweating and result was 145. Patient at this time also ordered some mashed potatoes and gravy and some cottage cheese. Patient did get up in chair this afternoon and is a standby assist to the bathroom. Diabetic education did come in and talk to patient this a.m. and said they would follow up with her as needed and the suggestion was made that she may need to go see an student worker. Patient receptive to any idea that evens out her blood sugars. Follow up: Will continue to monitor blood sugars.
--- NOTE | 2016-10-28 15:10 | NUR ---
Introduced self and care management services to patient. Lives by herself, recently her spouse was placed in SNF as she is unable to care for him. Has had ongoing blood sugar issues. Offered option of Home Health following her at home, she is agreeable so I put face to face order sheet on chart and started referral to [facility], they will see her next week if goes home on weekend. Note left for nurses to fax face to face and orders if goes home on weekend.
[2016-10-29 05:10] LABS: HEMATOCRIT 36.5 % (33.0-46.0); HEMOGLOBIN 12.7 g/dL (10.0-15.0); IMMATURE GRANULOCYTE % 0.2 %; LYMPHOCYTE # 3.2 K/uL (0.8-4.0); MCH 31.4 pg (27.0-34.0); MCHC 34.8 gm/dL (32.0-36.5); MCV 90.3 fl (83.0-98.0); MONOCYTE # 0.5 K/uL (0.0-1.0); MONOCYTE % 8.2 %; MPV 9.9 fl (9.4-12.4); NEUTROPHIL # (ANC) 2.1 K/uL (1.8-7.8); NEUTROPHIL % 36.6 %; NRBC % 0 /100WBC (0-0.00); RBC 4.04 M/uL (3.50-5.50); RDW-CV 12.8 % (11.9-14.6); WBC 5.8 K/uL (4.0-11.0)
[2016-10-29 05:12] LABS: PLATELET COUNT 188 K/uL (150-450)
[2016-10-29 05:36] LABS: CALCIUM 8.5 mg/dL (8.5-10.5); CREATININE 0.8 mg/dL (0.5-1.1); TOTAL PROTEIN 6.1 g/dL (6.0-8.4)
[2016-10-29 05:43] LABS: TOTAL BILIRUBIN 0.5 mg/dL (0.0-1.5)
--- NOTE | 2016-10-29 07:43 | NUR ---
Significant Event: PT 2100 BS: 503, NOTIFIED, 10U NOVOLOG ADMIN. 1 HOUR LATER B, NOTIFIED, 20 U LEVEMIR ADMIN. 1 HOUR LATER B. PT OFFERED SANDWICH/SNACK BUT REFUSED. 0512 B, 2 CARTONS OF OJ ADMINISTERED. 0533 B, NOTIFIED. 1 AMP D50 ADMINISTERED. 0630 B. PT REMAINS IN BED, DENIED S/S OF HIGH/LOW BG READINGS. WILL FU WITH TOP LIFT COMPRESSOR. Follow up:
--- NOTE | 2016-10-29 17:20 | NUR ---
Significant Event:Is A/O.Amb in halls by self.No c/o pain.SL Rt.anticub.Had accucheck at 0700 & was 165.At 1100 was 107.Tingling lips so was done at 1545 & was 55.2 grape juices & g.crackers with peanut butter given.Half hour later BS was 118.Eating & drinking fairly well. Follow up:
--- NOTE | 2016-10-30 05:00 | NUR ---
Pt. alert and oriented. VSS. RA. IV to R) forearm - saline locked. Up ad kelly. Diabetic diet. HS Blood sugar was 303. New order for mild sliding scale. Gave 6 units per protocol. Rechecked BS per request by pt. at 0100 and result was 62. Gave pt. OJ, PB, and crackers. 30mins later BS was 130. Pt. slept well through night. Did walk in halls x1. Coooperative with cares.
[2016-10-30] MEDS ORDERED: AMARYL2 MG PO (12:41)
--- NOTE | 2016-10-30 14:15 | NUR ---
PT.WAS INSTRUCTED TO CALL NURSE TO TAKE HER OUT FOR DISMISSAL WHEN RIDE GOT HERE. WAS IN ANOTHER ROOM,WENT IN TO SEE IF HER RIDE WAS HERE & SHE WAS NOT IN ROOM & CHECKED WITH ALL NURSES & FILTER PLANT SUPERVISOR'S & NO ONE HAD TAKEN HER OUT.APPARENTLY WHEN HER RIDE GOT HERE SHE JUST LEFT WITH THEM.SHE DID HAVE ALL HER SCRIPTS & HANDOUTS & TEACHINGS I GAVE HER EARLIER.
== END 2016-10-30 14:15 | disposition home health service (06) | DRG 638 ==
LOC: GMED 18:21 → GMSU 20:57
PROVIDERS: Emergency Medicine; Family Medicine; ADMIT Internal Medicine
DX: E11.649 Type 2 diabetes mellitus with hypoglycemia without coma (principal); E87.2 Acidosis; N17.9 Acute kidney failure, unspecified; Z79.4 Long term (current) use of insulin; I10 Essential (primary) hypertension; E78.5 Hyperlipidemia, unspecified; E03.9 Hypothyroidism, unspecified; F41.8 Other specified anxiety disorders
CPT/HCPCS: G0378; J7030

== ENCOUNTER → 2016-10-27 | Emergency (ER) | payer MEDICARE | END | disposition disaster alternative care site (69) | LOC: GAMB 17:16 | DX: E11.641 Type 2 diabetes mellitus with hypoglycemia with coma (principal) ==

== ENCOUNTER 2016-10-31 22:39 | Inpatient (IN) | payer MEDICARE ==
[~2016-10-31] VITALS: Ht 160 cm; Wt 75.3 kg
--- NOTE | ~2016-10-31 | PN ---
PATIENT'S NAME: ROSE DENSON [facility] AGE: 71 Y [address] ROOM: [address] [address] LOCATION: [facility] ADMIT DATE: 10/31/2016 Progress Notes DISCHARGE DATE: FAMILY PHYSICIAN: GURVINDER CISNEROS MD ATTENDING PHYSICIAN: SAMRA MAI DATE OF SERVICE: 11/01/2016 UPDATE: Rose Denson was admitted with DKA. Please see my previous update note in regard this hospitalization. The patient called me at my office at 10:30 in the morning on 11/01/2016, requesting that she see an "ending machine operator." I told her to discuss this with the [facility] group which is caring for her now and see if they can set that up either in transfer or as an outpatient, and she understands. GURVINDER CISNEROS MD HIGH WORKER/modl /[id number] d: 11/01/16 1824 t: 11/16/16 1734, PROGRESS NOTES
--- NOTE | ~2016-10-31 | ER ---
PATIENT'S NAME: MADDIE DENSON [facility] AGE: 71 Y [address] ROOM: [place] [address] LOCATION: [facility] ADMIT DATE: 10/31/2016 ER/Outpatient Report DISCHARGE DATE: FAMILY PHYSICIAN: PHYSICIAN, UNKNOWN ATTENDING PHYSICIAN: SAMRA MAI Time of Arrival: 2233 hours. Time of evaluation: 2233 hours. CHIEF COMPLAINT: High blood sugar. HISTORY OF PRESENT ILLNESS: The patient is a 71-year-old female, who presents to the emergency department today with a chief complaint of high blood sugar. She reports it has been going on for about 12 hours. The patient was recently released from the hospital. She was noted to have hypoglycemia, thus was taken off her insulin. She just got to the hospital yesterday. She did speak with Dr. Benjamin this morning, and he was going to see her the next morning, but her sugars continued to read high. She reports she is achy all over. Denies any fevers or chills. No chest pain. No shortness of breath. No cough. Does have a mild headache, 5/10 in severity, it is sharp. PAST MEDICAL HISTORY: Insulin-dependent diabetes mellitus, dyslipidemia, hypothyroid, hypertension, anxiety, depression. PAST SURGICAL HISTORY: Hysterectomy, cholecystectomy. SOCIAL HISTORY: The patient denies any tobacco use. Reports 2 to 3 alcohol drinks per week. Denies any illicit drug use. ALLERGIES: NO KNOWN DRUG ALLERGIES. MEDICATIONS: Please see list. PRIMARY CARE DOCTOR: Dr. Benjamin. REVIEW OF SYSTEMS: All systems are reviewed by myself and are negative with the exception of PATIENT'S NAME: MADDIE DENSON [facility] AGE: 71 Y [address] [place]OM: [id number] [address] LOCATION: [facility] ADMIT DATE: 10/31/2016 ER/Outpatient Report DISCHARGE DATE: FAMILY PHYSICIAN: PHYSICIAN, UNKNOWN ATTENDING PHYSICIAN: SAMRA MAI those discussed in the HPI and past medical history. PHYSICAL EXAMINATION: VITAL SIGNS: Weight 72.7 kg, blood pressure 131/60, pulse 93, respiratory rate 28, temperature 98.7, oxygen saturation 100% on room air. GENERAL: The patient is a 71-year-old female, who appears older than stated age, uncomfortable. HEENT: Normocephalic, atraumatic. Pupils are equal, round, and reactive to light. Mucous membranes are dry. NECK: Supple. There is no nuchal rigidity. CARDIOVASCULAR: Regular rate and rhythm. No murmurs, rubs, or gallops. LUNGS: Clear to auscultation bilaterally. No wheezes, rales, or rhonchi. ABDOMEN: Soft, nontender, and nondistended. No rebound, rigidity, or guarding. MUSCULOSKELETAL: The patient moves all 4 extremities. NEUROLOGICAL: GCS is 15. Alert and oriented x4. SKIN: Warm and dry. No rashes or lesions are noted. LABORATORY DATA AND X-RAYS: Labs and x-rays are obtained. CBC is normal. EKG is obtained, is interpreted by myself at 2317 hours shows sinus rhythm with a rate 89, left axis deviation, normal interval. No ST elevation, ST depression, or T-wave inversions. Venous blood gas: 6.98, 27, 44, 6.4, -24. Lactate is 4.4. Procalcitonin 0.06. Acetone is positive. CMP: Sodium 130, potassium 6.0, chloride 94, CO2 of 6, BUN 49, creatinine 1.9, glucose 801. LFTs are normal. Lipase is normal. Cardiac enzymes are normal. IMPRESSION: 1. Diabetic ketoacidosis with severe metabolic acidosis. 2. Hyperkalemia. 3. Acute on chronic kidney injury. 4. Lactic acidosis. 5. Initial visit. EMERGENCY DEPARTMENT COURSE: The patient was brought back to the examination room. Seen and evaluated by myself. IV is established. Laboratory analysis and imaging are obtained as described above. The patient was given IV normal saline 1 L bolus. This is repeated. The patient was then initiated on insulin drip at 7 units/hour. I have discussed the case with Dr. Benjamin, the patient's primary care doctor. He does request hospitalist admission. I have also discussed the case with Dr. Mai, who is on-call for the Hospitalist Service. He does agree to accept the patient for further evaluation, treatment, and management. The patient did require a cumulative critical care time of 34 minutes. This did include talking with the patient, talking with multiple consultants, ordering tests, PATIENT'S NAME: MADDIE DENSON [facility] AGE: 71 Y [address] ROOM: [address] [address] LOCATION: [facility] ADMIT DATE: 10/31/2016 ER/Outpatient Report DISCHARGE DATE: FAMILY PHYSICIAN: PHYSICIAN, UNKNOWN ATTENDING PHYSICIAN: SAMRA MAI reviewing tests, as well as close monitoring of the patient with severe diabetic ketoacidosis requiring insulin drip and fluid boluses. DISPOSITION: The patient is admitted under the care of Hospitalist Service in stable condition. DO LUCY MEZA/bluel /[id number] d: 11/01/16 0402 t: 11/01/16 1823, OUTPATIENT REPORT
--- NOTE | ~2016-10-31 | HP ---
PATIENT'S NAME: ROSE DENSON [facility] AGE: 71 Y [address] ROOM: [address] [address] LOCATION: [facility] ADMIT DATE: 10/31/2016 History & Physical DISCHARGE DATE: FAMILY PHYSICIAN: PHYSICIAN, UNKNOWN ATTENDING PHYSICIAN: SAMRA MAI DATE OF SERVICE: The patient is a 71-year-old female who was readmitted to the hospital at this time. She had been admitted a couple days ago with low blood sugars and was seen then by the hospitalist. She was sent out of the hospital off insulin and presented back to the hospital this time with DKA. I was called by Dr. Jhonathan Woodson, the ER physician who saw her in the emergency room just prior to admission at this time, and I referred the patient to the hospitalist service in light of her acute medical illnesses/DKA. I will follow socially here in the hospital but the direct care of Rose Denson will be as per the [facility] Hospitalist Group. MD RAMONA SALAZAR/bluel /[id number] D: [id number] T: [id number] HISTORY & PHYSICAL
--- NOTE | ~2016-10-31 | DS ---
PATIENT'S NAME: MADDIE DENSON [facility] AGE: 71 Y [address] [place]OM: [facility] [place], [place] [address] LOCATION: [facility] ADMIT DATE: 10/31/2016 Discharge Summary DISCHARGE DATE: 11/03/2016 FAMILY PHYSICIAN: Darius Benjamin MD ATTENDING PHYSICIAN: Willi Castaneda PRINCIPAL DISCHARGE DIAGNOSIS: Diabetic ketoacidosis, severe. SECONDARY DIAGNOSES: 1. Hypoglycemia, severe. 2. Uncontrolled diabetes mellitus, type 2, insulin dependent. 3. Hypertension. 4. Obesity. 5. Protein calorie malnutrition. 6. Acute kidney injury, present on admission with a creatinine of 1.9, now at baseline of 0.8. 7. Coronary artery disease, mild by cardiac catheterization on August 11, 2016. CONSULTATIONS: None. PROCEDURES: None. BRIEF HISTORY: Ms. Denson is a 71-year-old female whose diabetes is poorly controlled. She had just been discharged on the after an episode of lactic acidosis with severe hypoglycemia and had several changes to her diabetes regimen made; went home and developed severe hyperglycemia on the morning of admission. Despite reading high on the glucometer several times during that day, she stayed at home with polyuria, polydipsia, and fatigue. She presented here and was found to be in DKA and admitted to the ICU, started on IV insulin drip and treated overnight, when her anion gap closed and we attempted to start her on subcu insulin. Started diet; however, by early in the afternoon of 11/01, she was hyperglycemic again, and insulin drip was started at 7:00 p.m. After starting on the insulin drip with normal saline at 200 an hour, her glucose declined, and she was started on D5 with potassium replacement and at about 2:45 a.m., her IV fluids were discontinued. With IV drip being discontinued, she was given potassium phosphate IV supplement and by 4:00 a.m. she was hypoglycemic, required D50 at 4:00 a.m., and at 6:00 a.m., she was later begun on Levemir daily dose and had relatively low sugars for the day of the . We monitored her Accu-Cheks every 2 hours most of the day. She was encouraged to increase her protein intake for a low prealbumin of 12 and to help with PATIENT'S NAME: MADDIE DENSON [facility] AGE: 71 Y [address] ROOM: [id number] [place], [place] [address] LOCATION: [facility] ADMIT DATE: 10/31/2016 Discharge Summary DISCHARGE DATE: 11/03/2016 FAMILY PHYSICIAN: Darius Benjamin MD ATTENDING PHYSICIAN: Willi Castaneda this hypoglycemia. Because of glucose of 112 at 8:00 p.m., her evening dose of Levemir was held and she continued on q.2 glucoses through the night. She had no wide swings over 200 but did go down to 87 serum glucose at 3:00 a.m. Her fingerstick was 164 at 5, by 7 a.m. her glucose was 259 this morning. We have decided on outpatient regimen of daily Levemir and a mild sliding scale. She has been given a copy of that. She is also instructed to only give half of the sliding scale with the bedtime insulin check and she is instructed to take a 30 g snack including carbon and protein at that time. She has written instructions and has reiterated to me her understanding of this plan. She is to have an outpatient evaluation by Dr. Kyra Hirsch at [facility] tomorrow and that appointment is to be confirmed by the discharge team today. I myself have spoken with Dr. Kyra Hirsch twice and she is aware of the patient coming to her. The phone number at [facility] is [phone]. I have reviewed the patient's dietary recommendations and medications at the time of discharge. We went over her recent history of cardiac cath in the spring which showed 40% lesion to the LAD. I confirmed that this is the reason for her treatment with aspirin, statin, and beta-elizabeth. She reports her blood pressures have been relatively well-controlled. She does take Lasix. I have encouraged her to limit that only to, if she has a weight gain of 3 pounds, instead of taking it on a scheduled every other day basis, concerned about her kidney function, recent episodes of acute kidney injury with this admission, and supposedly during the admission from 10/27/2016 through 10/30/2016 and also in July. In addition, she is not on an KAJAL inhibitor. She is not aware of any adverse reaction to KAJAL inhibitor. I have encouraged her to discuss this with rivet hammer machine operator and with PCP as part of her regimen as a diabetic. INSTRUCTIONS AT DISCHARGE: 1. Diet: ADA, low-carbohydrate, low-fat, 1800 calories with a lean protein with each meal and snack and she was advised to avoid fruit juices. I advised her to look up the glycemic index of foods and choose low glycemic foods. 2. Activity: As tolerated. 3. Follow up with Dr. Kyra Hirsch, November 04 at 11:[address] Darius Benjamin within a week of discharge. LABORATORY DATA: Her hemoglobin A1c was 10.4 on 08/07/2016. It is due to be drawn on 11/06/2016, so this should be done next week. PATIENT'S NAME: MADDIE DENSON [facility] AGE: 71 Y [address] ROOM: [place] [address] LOCATION: [facility] ADMIT DATE: 10/31/2016 Discharge Summary DISCHARGE DATE: 11/03/2016 FAMILY PHYSICIAN: Darius Benjamin MD ATTENDING PHYSICIAN: Willi Castaneda MEDICATIONS AT DISCHARGE: 1. Aspirin 81 mg p.o. daily. 2. Lipitor 40 mg p.o. at bedtime. 3. NovoLog insulin sliding scale before meals and at bedtime as directed. 4. Levemir insulin 10 units subcu every morning. We will hold if her glucose is less than 120. 5. Levothyroxine 88 mcg daily. 6. Bystolic 25 mg at bedtime. 7. Effexor 150 mg p.o. daily. 8. She is to stop metformin and glimepiride. 9. Lasix 40 mg to take half a tablet p.r.n. weight gain of 2-3 pounds. CONDITION ON DISCHARGE: Good. Greater than 45 minutes was spent in review of the discharge plan with the patient and evaluation. MAMADOU MCCORMICK MD LM/bluel /[id number] CC: MD Kyra Chong MD d: 11/04/16 1415 t: 11/07/16 1224, DISCHARGE SUMMARY
--- NOTE | ~2016-10-31 | HP ---
PATIENT'S NAME: MADDIE DENSON [facility] AGE: 71 Y [address] ROOM: [place] [address] LOCATION: [facility] ADMIT DATE: 10/31/2016 History & Physical DISCHARGE DATE: FAMILY PHYSICIAN: PHYSICIAN, UNKNOWN ATTENDING PHYSICIAN: SAMRA MAI DATE OF SERVICE: CHIEF COMPLAINT: Polyuria, polydipsia, and generalized weakness, and found to be in DKA. HISTORY OF PRESENT ILLNESS: This is a 71-year-old female, who was recently discharged from our facility from hypoglycemia, and her insulin regimen was adjusted, and she was sent home with oral antidiabetic medications. The patient says that she went home on Monday, which was October 30, 2016. She says that on Monday morning, which was on October 31, 2016, in the morning, she checked her fingerstick glucose, was too high to be read by the glucometer. At the same time, she was experiencing polyuria and polydipsia and also feeling tired in general. The patient checked fingerstick glucose again later in the afternoon but was still too high to be read by the glucometer. Therefore, she gave herself 20 units of long-acting insulin subcu at home, and then she came here for evaluation. Her only complaint is polyuria and polydipsia and feels tired in general. She denies any chest pain, shortness of breath, fever, chills, dysuria, or any other complaints. REVIEW OF SYSTEMS: As mentioned in the history of present illness. All other systems were reviewed and were negative except those mentioned in the history of present illness. PAST MEDICAL HISTORY: 1. Diabetes type 2. 2. Hypertension. 3. Hyperlipidemia. 4. Hypothyroidism. 5. Anxiety. 6. Depression. ALLERGIES: NO KNOWN DRUG ALLERGIES. HOME MEDICATIONS: 1. Aspirin 81 mg p.o. daily. 2. Lipitor 40 mg p.o. at bedtime. PATIENT'S NAME: MADDIE DENSON [facility] AGE: 71 Y [address] ROOM: [id number] [place] [id number] LOCATION: [facility] ADMIT DATE: 10/31/2016 History & Physical DISCHARGE DATE: FAMILY PHYSICIAN: PHYSICIAN, UNKNOWN ATTENDING PHYSICIAN: SAMRA MAI 3. Lasix 20 mg p.o. every 48 hours. 4. Glimepiride 2 mg p.o. every day before breakfast. 5. Levothyroxine 88 mcg p.o. daily. 6. Metformin 1000 mg p.o. b.i.d. 7. Bystolic 2.5 mg p.o. every night at bedtime. 8. Effexor XR 150 mg p.o. every night at bedtime. SOCIAL HISTORY: The patient denies any cigarette or alcohol or any illegal drug use. FAMILY HISTORY: Her father was healthy, but he from farming accident at old age. Mother is healthy and still alive. PAST SURGICAL HISTORY: 1. Hysterectomy. 2. Cholecystectomy. PHYSICAL EXAMINATION: VITAL SIGNS: At the time of dictation, temperature 98.1, heart rate 91, respirations 13, blood pressure 113/57, saturation 94% on room air. GENERAL APPEARANCE: Alert and oriented x3. Currently, in no acute distress. HEENT: Pupils are equally round and reactive to light. Extraocular muscles intact. Anicteric sclerae. Nasal turbinates are normal bilaterally. Dry oral mucosa. CARDIOVASCULAR: Regular rate and rhythm. No murmur, no rubs, no gallops. Normal S1, S2. RESPIRATORY: Clear to auscultation. No rales. No rhonchi. No wheezing. No crackles. ABDOMEN: Obese, soft, nontender, nondistended, bowel sounds present, no mass. EXTREMITIES: No edema in upper or lower extremities. NEUROLOGIC: Grossly nonfocal. SKIN: No ulcer, no rash, no cyanosis. LABORATORY DATA: Venous blood gas on admission showed pH of 6.98, pCO2 of 27, bicarbonate of 6.4. Lactic acid 4.4. Troponin less than 0.04, CPK 29. White blood cell 10.8, hemoglobin 12.8, hematocrit 39.5, platelet 301. Glucose 801, BUN 49, creatinine 1.9, sodium 130, potassium 6.0, chloride 94, CO2 of 6, calcium 8.1. Total protein 6.9, albumin 3.3, AST 15, ALT 27, alkaline phosphatase 173, total bilirubin 0.5, anion gap 36, globulin 3.6. Urinalysis: Negative leukocyte, negative nitrite, few bacteria, 150 ketones, and 1000 glucose. Lipase 131. CK-MB 1.3. Acetone positive. Procalcitonin 0.06. GFR 27. IMAGING STUDIES: PATIENT'S NAME: MADDIE DENSON [facility] AGE: 71 Y [address] ROOM: [id number] [place], [place] [address] LOCATION: [facility] ADMIT DATE: 10/31/2016 History & Physical DISCHARGE DATE: FAMILY PHYSICIAN: PHYSICIAN, UNKNOWN ATTENDING PHYSICIAN: SAMRA MAI EKG on admission was performed with no acute ischemic changes, in sinus rhythm, heart rate within normal limits. EMERGENCY DEPARTMENT COURSE: In the emergency room, the patient got insulin drip. Bolus was not given. The patient also got 2 L of normal saline in the ED. ASSESSMENT AND PLAN: 1. Regarding her diabetic ketoacidosis: Continue the IV insulin drip per diabetic ketoacidosis protocol. Because the pH is less than 7, I will be giving her sodium bicarbonate 100 mEq in the 400 mL of water run over 2 hours per diabetic ketoacidosis protocol. Continue fingerstick glucose every hour check per diabetic ketoacidosis protocol, and I will check a basic metabolic panel and venous blood gas every 2 hours to see if she will require any potassium replacement, and when the pH is more stable above 7, we can stop the venous blood gas check every 2 hours. Continue IV fluids per diabetic ketoacidosis protocol. The cause of the diabetic ketoacidosis was likely from the underdosing of her home diabetic medication regimen. For now, we will continue the diabetic diet. 2. Regarding her hypertension: Continue home medication with holding parameter. Refer to the home medication section for details. 3. Regarding her acute kidney injury: This is from the dehydration from the polyuria and polydipsia from her diabetic ketoacidosis. Continue IV fluids. We will be checking labs again in 2 hours. 4. Regarding her hypothyroidism: Continue the home medication. Refer to the home medication section for details. 5. Regarding her deep venous thrombosis prophylaxis: She will be on heparin subcu 3 times a day. 6. She is a full code. Time spent in care on the day of admission 35 minutes where 10 minutes were spent on chart review, and remainder of the time was spent on counseling and also including physical examination and interview. The counseling includes addressing all the questions and concerns that the patient had and going over the plan of care with the patient and addressing all her questions to her satisfaction. This time also includes going over the plan of care with the nurse. Further plan will depend on clinical course. MD GASTON ROGEL/josiah PATIENT'S NAME: MADDIE DENSON [facility] AGE: 71 Y [address] ROOM: [place] [address] LOCATION: [facility] ADMIT DATE: 10/31/2016 History & Physical DISCHARGE DATE: FAMILY PHYSICIAN: PHYSICIAN, UNKNOWN ATTENDING PHYSICIAN: SAMRA MAI /[id number] D: [id number] T: 815 HISTORY & PHYSICAL
[~2016-10-31 22:39] MED LIST changes: -HUMULIN 70100 UNIT/1 SUB-Q; -HUMULIN 70100 UNIT/M SUB-Q; -NOVOLOG100 UNIT/M SUB-Q
[2016-10-31 22:58] LABS: HEMATOCRIT 39.5 % (33.0-46.0); HEMOGLOBIN 12.8 g/dL (10.0-15.0); IMMATURE GRANULOCYTE % 0.4 %; LYMPHOCYTE % 8.9 %; MCH 31.1 pg (27.0-34.0); MCHC 32.4 gm/dL (32.0-36.5); MONOCYTE # 0.3 K/uL (0.0-1.0); MPV 10.6 fl (9.4-12.4); NEUTROPHIL # (ANC) 9.5 K/uL (1.8-7.8); NEUTROPHIL % 87.7 %; NRBC % 0 /100WBC (0-0.00); RBC 4.12 M/uL (3.50-5.50); RDW-CV 12.6 % (11.9-14.6); WBC 10.8 K/uL (4.0-11.0)
[2016-10-31 23:00] LABS: MCV 95.9 fl (83.0-98.0); PLATELET COUNT 301 K/uL (150-450)
[2016-10-31 23:03] LABS: BICARBONATE 6.4 mmol/L (18.0-23.0); LACTATE 4.4 mEq/L (0.50-1.60); PCO2 27 mmHg (35-45); PO2 44 mmHg (80-90)
[2016-10-31 23:28] LABS: ALBUMIN 3.3 gm/dL (3.5-5.0); ALK PHOS 173 IU/L (33-138); ALT 27 IU/L (12-78); AST 15 IU/L (10-40); BLOOD UREA NITROGEN 49 mg/dL (6-24); CALCIUM 8.1 mg/dL (8.5-10.5); CHLORIDE 94 mMol/L (96-110); CPK 29 IU/L (21-215); SODIUM 130 mMol/L (135-145); TOTAL BILIRUBIN 0.5 mg/dL (0.0-1.5); TOTAL PROTEIN 6.9 g/dL (6.0-8.4)
[2016-10-31 23:34] LABS: CO2 6 mMol/L (22-32)
[2016-10-31 23:35] LABS: CREATININE 1.9 mg/dL (0.5-1.1)
[2016-11-01 01:51] LABS: BILIRUBIN URINE NEGATIVE (NEGATIVE); BLOOD URINE NEGATIVE /UL (NEGATIVE); COLOR URINE YELLOW (YELLOW); GLUCOSE URINE 1000 mg/dL (NEGATIVE); KETONE URINE 150 mg/dL (NEGATIVE); LEUKOCYTES URINE NEGATIVE /UL (NEGATIVE); NITRITE URINE NEGATIVE (NEGATIVE); PROTEIN URINE NEGATIVE (NEGATIVE); TURBIDITY URINE CLEAR (CLEAR); UROBILINOGEN URINE NORMAL (NORMAL)
[2016-11-01 02:28] LABS: PCO2 23 mmHg (35-45)
[2016-11-01 02:38] LABS: BICARBONATE 7.7 mmol/L (18.0-23.0); PO2 74 mmHg (80-90)
[2016-11-01 02:43] LABS: CALCIUM 7.5 mg/dL (8.5-10.5); CREATININE 1.8 mg/dL (0.5-1.1)
[2016-11-01 02:45] LABS: ANION GAP 25.9 (10.0-19.0); POTASSIUM 3.9 mMol/L (3.7-5.1)
--- NOTE | 2016-11-01 04:37 | NUR ---
Significant Event: A/ox3. VSS. RA. 1A to commode. Voided x1, 300 ml. Denies pain. Insulin gtt running at 9 units/hr. NS at 250 ml/hr. Follow up: Continue
[2016-11-01 05:26] LABS: ANION GAP 19.5 (10.0-19.0); CALCIUM 7.6 mg/dL (8.5-10.5); CREATININE 1.6 mg/dL (0.5-1.1); POTASSIUM 3.5 mMol/L (3.7-5.1)
[2016-11-01 07:31] LABS: ANION GAP 15.6 (10.0-19.0); CALCIUM 7.7 mg/dL (8.5-10.5); CREATININE 1.6 mg/dL (0.5-1.1); POTASSIUM 3.6 mMol/L (3.7-5.1)
[2016-11-01 09:33] LABS: ANION GAP 13.6 (10.0-19.0); CREATININE 1.4 mg/dL (0.5-1.1); POTASSIUM 3.6 mMol/L (3.7-5.1)
[2016-11-01 09:37] LABS: CALCIUM 7.3 mg/dL (8.5-10.5)
[2016-11-01] MEDS ORDERED: HUMULIN 70100 UNIT/1 SUB-Q (10:15)
[2016-11-01] MEDS ORDERED: HUMULIN 70100 UNIT/M SUB-Q (10:15)
[2016-11-01 11:11] LABS: MAGNESIUM 1.3 mg/dL (1.8-2.6)
--- NOTE | 2016-11-01 11:39 | NUR ---
Talked with patient this morning, known to me from previous hospital stay. Asked her if home health contacted her at home after her discharge on the weekend to set up time to come out and she said they called her but she has to be homebound to have home health and she isn't homebound, is driving over to see her at the snf every day, she doesn't want/can't have home health. Says she thinks she needs to see a specialist and talking with physician about that. Denies other needs from me. Later received a call from Dr Velasco asking me to find out who electrical maintenance engineer is that is in [place]. Called [facility] who transferred me to [facility] and medical receptionist biller there took Dr Velasco phone number from me and will have their locum electrical maintenance engineer (there until Mar 31) Kyra Hirsch MD call Dr Velasco. Clinic number is [phone]. Called Dr Velasco back with that information.
--- NOTE | 2016-11-01 17:06 | NUR ---
Significant Event: Patient is A&O X3, follows all commands, pupils are equal and reactive. SBP Have been 90's-low 100's, MAP's have been upper 50's-80's. Patient has been in SR with HR 70's-80's. Patient is on RA with o2 sats mid to upper 90's. Lung sounds are clear. 1 assist up to the bedside commode. Insulin gtt was shut off at 1220. Follow up:
[2016-11-01 18:27] LABS: CALCIUM 7.7 mg/dL (8.5-10.5); CREATININE 1.2 mg/dL (0.5-1.1); PHOSPHORUS 2.7 mg/dL (2.5-4.9)
[2016-11-01 18:30] LABS: ANION GAP 23.1 (10.0-19.0); POTASSIUM 5.1 mMol/L (3.7-5.1)
[2016-11-01 18:31] LABS: MAGNESIUM 2.8 mg/dL (1.8-2.6)
[2016-11-02] LABS: ANION GAP 14.7 (10.0-19.0); CALCIUM 7.5 mg/dL (8.5-10.5); CREATININE 1.2 mg/dL (0.5-1.1)
[2016-11-02 00:01] LABS: POTASSIUM 3.7 mMol/L (3.7-5.1)
[2016-11-02 02:21] LABS: ALBUMIN 2.5 gm/dL (3.5-5.0); ANION GAP 12.6 (10.0-19.0); CALCIUM 7.5 mg/dL (8.5-10.5); MAGNESIUM 2.2 mg/dL (1.8-2.6); POTASSIUM 3.6 mMol/L (3.7-5.1); TOTAL PROTEIN 5.2 g/dL (6.0-8.4)
[2016-11-02 02:30] LABS: PHOSPHORUS 1.6 mg/dL (2.5-4.9); TOTAL BILIRUBIN 0.2 mg/dL (0.0-1.5)
[2016-11-02 07:21] LABS: ANION GAP 14.3 (10.0-19.0); POTASSIUM 4.3 mMol/L (3.7-5.1)
[2016-11-02 07:26] LABS: CALCIUM 7.4 mg/dL (8.5-10.5)
--- NOTE | 2016-11-02 12:21 | NUR ---
Diabetes consult: Patient's blood glucose levels labile and being closely monitored. This morning the patient's insulin gtt was discontinued at 0245 and she was found to have a low blood sugar of 50. Blood sugars were treated with D50 and by 0600 blood sugars had elevated to 98. At 700 this monring her blood sugar was 171 and she was given Levemir 10 units. Will continue to trend blood sugars. The patient was previously admitted with bouts of hypoglycemia with basal insulin doses at 30 units daily. Old records form the previous three hospitalizations were reviewed. Questions whether the patient has an insulinoma or adrenal insufficiency. At CT scan without contrast was done in July 2016, which indicated no abnormalities seen to the pancreas or adrenal glands. Old records do not indicate that a cortisol level has been evaluated.
[2016-11-02 13:30] LABS: ANION GAP 12.7 (10.0-19.0); CALCIUM 7.6 mg/dL (8.5-10.5); POTASSIUM 4.7 mMol/L (3.7-5.1)
--- NOTE | 2016-11-02 13:42 | NUR ---
Significant Event:Up in the chair with one assist. A/O x 3. Denies pain. LS clear on room air. Sats >90%. Abd soft w/ active bowel tones. Expelled a moderater stool today. Voided 500ml. Skin w/d. Eating poorly bites for breakfast and lunch 25%. Accuchecks this shift. 171, 90, and 128. Given Levimar 10 units today. On mild SSI. Next accucheck at 1500. Patient is QUINAULT. NSR VSS. Recieved Kphos IV today. Follow up:
[2016-11-03 04:10] LABS: ALBUMIN 2.6 gm/dL (3.5-5.0); ANION GAP 13.5 (10.0-19.0); CALCIUM 7.8 mg/dL (8.5-10.5); CREATININE 0.8 mg/dL (0.5-1.1); MAGNESIUM 1.8 mg/dL (1.8-2.6); PHOSPHORUS 2.9 mg/dL (2.5-4.9); POTASSIUM 4.5 mMol/L (3.7-5.1)
--- NOTE | 2016-11-03 05:53 | NUR ---
Significant Event: DENIES PAIN ALL NIGHT. ACCUCHECKS DONE Q2H. HELD LEVEMIR PER DR. MCCORMICK'S ORDER. ONLY GAVE 4 UNITS OF NOVOLOG X1 AND SHE DROPPED FROM 260 TO 119 IN 2 HRS. A TOTAL OF 2 JUICES AND PEANUT BUTTER WAS GIVEN. VOIDING WELL PER BR. Follow up:
--- NOTE | 2016-11-03 10:16 | NUR ---
Diabetes consult: Patient's blood sugars have been better controlled with Levemir 10 units a day. The patient does have Novolog mild correction ordered ac/hs. Last evening at 2100, the patient's blood sugar was 260. She received 4 units of Novolog and overnight her blood sugars dropped to 119 and 84. This morning her blood sugar is 222. Cortisol level this a.m. is 20.6. Recommendations for the physician to consider regarding an insulin regimen upon discharge written on the chart. Recommend the following; 1. Levemir 10 units every a.m. 2. Novolog mild correction with meals 3. Patient to check HS blood sugars at 2100 (she does stay up until 2300). Give 1/2 the indicated dose on the mild correction scale. Eat a 30 gram carb plus protein snack. May reevaluate blood sugar at 2300. The patient was educated on use of the correction scale. She was informed of dosing, and timing of the insulin in relation to meals. She was encouraged to eat 3 meals per day. The patient reports using a vial and syringe to dose her Levemir at home. The patient is able to redemonstrate how to draw up the correct dose of insulin with the insulin syringe when given a blood sugar scenario. Please be sure to send patient with a script for a vial of Novolog. She has no visual impairments and reports a vial of insulin is cheaper for her. Patient reports having a neighbor that is a nurse that can check on her. She does have an appointment to see endocrinology in [place].
[2016-11-03] MEDS ORDERED: NOVOLOG100 UNIT/M SUB-Q (13:39)
[2016-11-03] MEDS ORDERED: LEVEMIR100 UNIT/1 SUB-Q (13:42)
--- NOTE | 2016-11-03 14:25 | NUR ---
Significant Event: A/O x3, cooperative with cares. VSS, SBPs 120-160s, HRs 70s, on room air. Blood sugars this shift 259, 222, 122 et 76; treated accordingly. No c/o pain. Up in room with SBA; up in chair. Dismissal instructions given to patient et ; verbalized understanding. Dismissed to front lobby per w/c accompanied by nursing home director. Follow up:
--- NOTE | 2016-11-03 14:39 | NUR ---
Talked with patient, discharging today, has an appointment with handbag parts cutter in [place] tomorrow, looking forward to that appointment. Denies other concerns or needs for me.
== END 2016-11-03 14:30 | disposition disaster alternative care site (69) | DRG 637 ==
LOC: GMED 22:39 → GICU 23:34 → GPCU 11-02 16:10
PROVIDERS: Emergency Medicine; Internal Medicine; ADMIT Internal Medicine
DX: E13.10 Other specified diabetes mellitus with ketoacidosis without coma (principal); E43 Unspecified severe protein-calorie malnutrition; N17.9 Acute kidney failure, unspecified; I25.10 Atherosclerotic heart disease of native coronary artery without angina pectoris; E66.9 Obesity, unspecified; E86.0 Dehydration; E78.5 Hyperlipidemia, unspecified; E03.9 Hypothyroidism, unspecified; F32.9 Major depressive disorder, single episode, unspecified; I12.9 Hypertensive chronic kidney disease with stage 1 through stage 4 chronic kidney disease, or unspecified chronic kidney disease; N18.9 Chronic kidney disease, unspecified; Z68.26 Body mass index [BMI] 26.0-26.9, adult; Z79.82 Long term (current) use of aspirin; Z79.84 Long term (current) use of oral hypoglycemic drugs
CPT/HCPCS: J1644; J3475; J3480; J7030; J7040; J7050; J7060

== ENCOUNTER → 2016-10-31 | Outpatient (CLI) | payer MEDICARE ==
[~2016-10-31] MED LIST changes: +AMARYL2 MG PO; +HUMULIN 70100 UNIT/1 SUB-Q; +HUMULIN 70100 UNIT/M SUB-Q; +NOVOLOG100 UNIT/M SUB-Q
== END | disposition disaster alternative care site (69) ==
LOC: GAMB 22:11
DX: E11.65 Type 2 diabetes mellitus with hyperglycemia (principal); R45.1 Restlessness and agitation
CPT/HCPCS: A0425; A0429; J7030